=== PATIENT | male | born 1945 | race Caucasian/White ===

== ENCOUNTER 2022-12-18 13:09 | Inpatient (IN) | payer OTHER ==
--- OUTSIDE RECORDS SUMMARY | 2022-12-18 13:13 | XMS REPORT | Continuity of Care Document ---
:1945 Author Organization [facility] t Address [address] [address] Care Team Providers Name Role Phone [phone] Primary Care Physician Unavailable ADRIANA CASTANEDA Attending Clinician Unavailable BERNICE BRODY Attending Clinician Unavailable ASHLI GODINEZ Attending Clinician Unavailable ASHLI GODINEZ Admitting Clinician Unavailable Payers Payer Name Policy Type Policy Number Effective Date Expiration Date S ource MEDICARE PART A [id number] 2010 AND B 00:00:00 [employer] [id number] 2019 00:00:00 Problems Condition Condition Condition Status Onset Resolution Last Treating Co mments Source Name Details Category Date Date Treatment Clinician Date PAD PAD Disease Active [facility] (periphera (periphera 1-14 st l artery l artery 00:00: Hospit a disease) disease) 00 l Bilateral Bilateral Disease Active 2019- Met [facility] carotid carotid 1-14 st artery artery 00:00: Hospita stenosis stenosis 00 l Allergies, Adverse Reactions, Alerts Allergy Allergy Status Severity Reaction(s) Onset Inactive Treating Comm ents Source Name Type Date Date Clinician Sulfa Propensi Active Rash 2018-07 Lower [facility] (Sulfona ty to 0-01 legs , st mide adverse 00:00: blisters Hospita Antibiot reaction 00 , l ics) s to infection drug s Family History Family Member Diagnosis Comments Start Date Stop Date Source Natural father Stroke [facility] Maternal uncle Heart disease [facility] Natural mother [facility] Paternal uncle Heart attack [facility] Social History Social Habit Start Date Stop Date Quantity Comments Source History of tobacco 1961-01-20 Smokes tobacco Me thodist use 00:00:00 daily Hospital [facility] Cigarettes smoked 2021-05-02 2021-05-[address] current (pack per 00:00:00 00:00:00 Hospita l day) - Reported Cigarette 2021-05-02 2021-05-02 [facility] pack-years 00:00:00 00:00:00 Hospital Tobacco use and 2021-05-02 2021-05-02 Smokeless [facility] exposure 00:00:00 00:00:00 tobacco non-user Hospital Alcohol intake 2021-05-02 2021-05-02 Lifetime [facility] 00:00:00 00:00:00 non-drinker Hospital (finding) History of Social 2021-05-02 2021-05-[address] function 00:00:00 00:00:00 Hospital Tobacco Comment 2021-05-02 2021-05-02 enjoy small [facility] t 00:00:00 00:00:00 ciggerlo cigars [facility] Sex Ass[birth year] At [birth year] [facility] 00:00:00 00:00:00 Hospital Smoking Status Start Date Stop Date Source Smokes tobacco daily 2021-05-02 00:00:[address] [facility] Medications Ordered Filled Start Stop Current Ordering Indication Dosage Frequency Signature Comments Components Source Medication Medication Date Date Medication? Clinician (SIG) Name Name pantoprazol 2020-07 Yes 40mg QD Take 40 mg [facility] e 0-[address] (PROTONIX) 11:13: daily. Hospi ta 40 MG EC 37 l tablet ferrous 2020-07 Yes 1{tbl} QD Take 1 [facility] i fumarate 0-[address] (FERROCITE) 11:13: mouth Hospi ta 324 mg (106 37 daily. l mg iron) tablet TURMERIC 2019-0 Yes 2000mg QD Take 2,000 M [facility]i ORAL 4-[address] 13:25: mouth Hospita 26 daily. l gabapentin 2020-0 Yes [id number] 300mg Q.5D Take 1 [facility] (NEURONTIN) 4-[address] 300 mg 00:00: (300 mg Hospita capsule 00 total) by l mouth 2 (two) times a day. atorvastati Yes 20mg QD Take 20 mg [facility] n (LIPITOR) 9-[address] 20 MG 00:00: every Hospita tablet 00 evening. l carvedilol Yes Take by Meth burak (COREG) 9-[address] 12.5 MG 00:00: Taking 1 Hospit a tablet 00 1/2 tablet l twice a day clopidogrel Yes 75mg QD Take 75 mg [facility] (PLAVIX) 75 8-[address] mg tablet 00:00: daily. Hospit a 00 l lisinopril- 0 Yes 1{tbl} Q.5D Take 1 Me thodi hydrochloro 8-[address] thiazide 00:00: mouth 2 Hospit a (PRINZIDE,Z 00 (two) l ESTORETIC) times a 20-12.5 mg day. per tablet hydrALAZINE Yes 20mg Q.5D Take 20 mg [facility] (APRESOLINE 8-[address] ) 10 MG 00:00: (two) Hospita tablet 00 times a l day. Procedures This patient has no known procedures. Plan of Care Planned Activity Planned Date Details Comments Source Future Scheduled 2022-11-02 COVID-19 VACCINE (#1) [facility] Test 15:15:52 [code = COVID-19 VACCINE (#1)] Future Scheduled 2022-11-02 65+ PNEUMOCOCCAL [facility] Test 15:15:52 VACCINE (1 - PCV) [code = 65+ PNEUMOCOCCAL VACCINE (1 - PCV)] Future Scheduled 2022-11-02 Hepatitis C screening [facility] Test 15:15:52 (procedure) [code = 950308809] Future Scheduled 2022-11-02 SHINGLES VACCINES (1 [facility] Test 15:15:52 of 2) [code = SHINGLES VACCINES (1 of 2)] Future Scheduled 2022-11-02 INFLUENZA VACCINE [facility] Test 15:15:52 [code = INFLUENZA VACCINE] Encounters Start End Encounter Admission Attending Care Care Encounter Source Date/Time Date/Time Type Type Clinicians Facility Department ID 2021-05-02 2021-05-02 [facility] [id number] [place] 00:00:00 00:00:00 ADRIANA [address] 2021-05-02 2021-05-02 Outpatient [facility] [id number] [place] 00:00:00 00:00:00 ADRIANA [address] 2020-08-01 2020-08-01 Outpatient ALEJANDRO TROTTER [facility] [id number] 00:00:00 00:00:00 Mariano WITT 2019-08-26 2019-08-26 [facility] [id number] [place] 00:00:00 00:00:00 ASHLI [address] Results This patient has no known results.
[2022-12-18] MEDS ORDERED: NA CHLORIDE 0.9% 1,000 ML ONE ×2 (14:02→18:25)
[2022-12-18] MEDS ORDERED: ONDANSETRON 4 MG/2 ML VIAL ONE (14:02)
[2022-12-18] MEDS ORDERED: NA CHLORIDE 0.9% 500 ML ONE ×2 (14:02→14:55)
[2022-12-18] MEDS ORDERED: FENTANYL CITR 100 MCG/2 ML ONE ×3 (14:02→16:49)
[2022-12-18] MEDS ORDERED: FAMOTIDINE 20 MG/2 ML VIAL IV ONE ×2 (14:02)
[2022-12-18 14:11] LABS: Absolute Lymphocytes (CBC) 0.5 K/uL (0.7-4.9); Hematocrit 40.4 % (39.6-49.0); MCV 95.7 fL (80-100); MPV 8.2 fL (7.6-11.3); RBC Red Blood Cell Count 4.22 M/uL (4.33-5.43)
[2022-12-18 14:12] LABS: Protime INR 1.25
[2022-12-18 14:28] LABS: Bilirubin Direct 0.4 mg/dL (0-0.2); Bilirubin Indirect, Calculated 0.5 mg/dL (0.2-0.8); Bilirubin Total 0.9 mg/dL (0.2-1.0); Troponin High Sensitivity 15.8 pg/mL (<58.9)
--- NOTE | 2022-12-18 14:52 | RAD REPORT ---
EXAM DESCRIPTION: Luis Danielt Single View12/18/2022 2:25 pm CLINICAL HISTORY: ABDOMINAL DISTENTION COMPARISON: CHEST PA AND LAT 2 VIEW dated 10/29/2014; CHEST PA AND LAT 2 VIEW dated 09/23/2007 TECHNIQUE: Portable AP view of the chest. FINDINGS: Decreased inspiratory effort limits evaluation. The lungs are clear. No pneumothorax or ef fusion. The cardiomediastinal contours are unremarkable. IMPRESSION: No acute cardiopulmonary process.
[2022-12-18 14:54] LABS: Specific Gravity 1.015 (1.005-1.030); Urine Bacteria None Seen /HPF (<20); Urine Bilirubin NEGATIVE (Negative); Urine Blood Negative (Negative); Urine Clarity Clear (Clear); Urine Color Light-Yellow (Yellow); Urine Glucose NEGATIVE (Negative); Urine Protein TRACE (Negative); Urine RBC <5 /HPF (None Seen); Urine Urobilinogen Normal (Normal)
[2022-12-18] MEDS ORDERED: NA CHLORIDE 0.9% 100 ML ONE (14:55)
[2022-12-18] MEDS ORDERED: PANTOPRAZOLE 40 MG INJ ONE (14:55)
[2022-12-18] MEDS ORDERED: PIPERACIL/TAZO 3.375 GM VIAL IV ONE (14:56)
--- NOTE | 2022-12-18 15:16 | RAD REPORT ---
EXAM DESCRIPTION: CT - Abdomen Pelvis Wo Contrast - 12/18/2022 2:40 pm CLINICAL HISTORY: ABD PAIN COMPARISON: CT ABD PELVIS W WO CONTRAST dated 01/15/2009 TECHNIQUE: Thin cut axial CT imaging of the abdomen and pelvis was performed without IV contrast. Mu ltiplanar reformats were generated and reviewed. All CT scans are performed using dose optimization technique as appropriate and may include automated exposure control or mA/KV adjustment according to patient size. FINDINGS: No suspicious findings in the lung bases. The liver, spleen, and pancreas show no suspicious findings. Gallbladder and biliary tree are also wi thout suspicious finding. Atrophic changes of the left kidney, without suspicious parenchymal findings within limits of noncont rast technique. No evidence of radiopaque calculi or hydroureteronephrosis. Ill-defined soft tissue thickening in the region of the appendix. Adjacent inflammatory changes with fat stranding extending towards the adventitia of the cecal base and adjacent terminal ileum, likely reactive. No free air, or circumscribed fluid collection within limits of noncontrast evaluation. Tra ce free fluid layering in the pelvis. No suspicious mass or bulky lymphadenopathy. Diastasis recti. T he urinary bladder is without significant finding. No suspicious bony findings. IMPRESSION: Findings suggestive of ruptured appendicitis, with an ill-defined phlegmon in the region of the appendix. Trace layering fluid in the pelvis. No evidence of free air or a well-circumscribed collection within limits of noncontrast evaluation. Other incidental findings as above. The findings were communicated to Gabriele Gay on 12/18/2022 at 15:08 hours.
--- NOTE | 2022-12-18 15:28 | ER ---
Nurse's Notes [facility] Name: Alxe Bhatia Age: 77 yrs Sex: Male : 1945 Arrival Date: 12/18/2022 Time: 13:09 Bed 5 Private MD: Diagnosis: Abdominal pain, Generalized;Acute appendicitis with generalized peritonitis;Acute kidney failure, unspecified;Nausea Presentation: 12/18 13:24 Chief complaint: Patient states: lower abd pain, nausea, started last night , sever iw this morning , pain goes into scrotum. 13:24 Method Of Arrival: Wheelchair iw 13:26 Ebola Screen: Patient negative for fever greater than or equal to 101.5 degrees iw Fahrenheit, and additional compatible Ebola Virus Disease symptoms Patient denies exposure to infectious person. Patient denies travel to an Ebola-affected area in the 21 days before illness onset. No symptoms or risks identified at this time. Initial Sepsis Screen: Does the patient meet any 2 criteria? No. Patient's initial sepsis screen is negative. Does the patient have a suspected source of infection? No. Patient's initial sepsis screen is negative. Risk Assessment: Do you want to hurt yourself or someone else? Patient reports no desire to harm self or others. 13:26 Acuity: LATANYA 2 iw Triage Assessment: 13:30 General: Appears uncomfortable, Behavior is calm, cooperative, appropriate for age. bp Pain: Complains of pain in right lower quadrant and left lower quadrant. EENT: No deficits noted. Neuro: No deficits noted. Cardiovascular: No deficits noted. Respiratory: No deficits noted. GI: Reports lower abdominal pain. : Reports pain scrotum. Derm: No deficits noted. Musculoskeletal: No deficits noted. Historical: - Allergies: 13:24 Sulfa (Sulfonamide Antibiotics); iw - PMHx: 13:24 prostate cancer; Hypertensive disorder; COPD; stomach ulcers; iw - PSHx: 13:24 None; iw - Immunization history:: Client reports receiving the 2nd dose of the Covid vaccine. - Social history:: Smoking status: Patient reports the use of cigarette tobacco products. - Family history:: not pertinent. Screenin:30 [facility] ED Fall Risk Assessment (Adult) History of falling in the last 3 months, bp including since admission No falls in past 3 months (0 pts). Abuse screen: Denies threats or abuse. Denies injuries from another. Nutritional screening: No deficits noted. Tuberculosis screening: No symptoms or risk factors identified. Assessment: 13:30 General: SEE TRIAGE NOTE. bp 14:32 Reassessment: No changes from previously documented assessment. to CT via stretcher. ll1 15:42 Reassessment: SURGEON AT B/S. PT FOR STAT OR 2/2 RUPTURED APPY. bp 15:55 Reassessment: Gave report to scouring pads supervisor PEGGY Can. mb9 Vital Signs: 13:25 Pulse 63; Resp 18; Temp 97.3; Pulse Ox 96% ; Weight 115.67 kg; Height 6 ft. 0 in. ; iw 14:32 BP 160 / 67; Pulse 83; Pulse Ox 98% ; ll1 15:42 BP 115 / 46; Pulse 77; Resp 17; Pulse Ox 97% ; bp 13:25 Body Mass Index 34.58 (115.67 kg, 182.88 cm) iw ED Course: 13:15 Patient arrived in ED. kj1 13:26 Triage completed. iw 13:26 Arm band placed on. iw 13:29 Gabriele Gay MD is Attending Physician. ian 13:30 Patient has correct armband on for positive identification. Bed in low position. Call bp light in reach. Side rails up X2. Adult w/ patient. 13:45 Inserted saline lock: 20 gauge in right antecubital area, using aseptic technique. mb9 13:58 Ryan Miles, RN is Primary Nurse. bp 14:22 Basic Metabolic Panel Sent. mb9 14:22 LFT's Sent. mb9 14:22 Magnesium Sent. mb9 14:22 NT PRO-BNP Sent. mb9 14:22 Troponin HS Sent. mb9 14:27 XRAY Chest (1 view) In Process Unspecified. EDMS 14:40 Abdomen In Process Unspecified. EDMS 15:21 Kirill Lopez MD is Hospitalizing Provider. ian 15:22 EKG done, by ED staff, reviewed by Ryan Miles RN. mb9 15:56 No provider procedures requiring assistance completed. Patient admitted, IV remains in mb9 place. Administered Medications: 13:45 Drug: NS 0.9% IV 500 ml Route: IV; Rate: bolus; Site: right antecubital; mb9 15:21 Follow up: Response: No adverse reaction; IV Status: Completed infusion mb9 13:45 Drug: NS 0.9% IV 1000 ml Route: IV; Rate: 125 ml/hr; Site: right antecubital; mb9 13:45 Drug: Ondansetron IVP 4 mg Route: IVP; Site: right antecubital; mb9 14:37 Follow up: Response: No adverse reaction mb9 13:48 Drug: Famotidine IVP 20 mg Route: IVP; Site: right antecubital; mb9 14:38 Follow up: Response: No adverse reaction mb9 13:55 Drug: fentaNYL (PF) IVP 50 mcg Route: IVP; Site: right antecubital; mb9 14:37 Follow up: Response: No adverse reaction mb9 15:05 Drug: NS 0.9% IV 500 ml Route: IV; Rate: bolus; Site: right antecubital; mb9 15:56 Follow up: Response: No adverse reaction; IV Status: Completed infusion mb9 15:08 Drug: Pantoprazole IVP 40 mg Route: IVP; Site: right antecubital; mb9 15:22 Follow up: Response: No adverse reaction mb9 15:15 Drug: fentaNYL (PF) IVP 25 mcg Route: IVP; Site: right antecubital; mb9 15:21 Follow up: Response: No adverse reaction mb9 15:20 Drug: Piperacillin-Tazobactam IVPB 3.375 grams Route: IVPB; Infused Over: 60 mins; mb9 Site: right antecubital; Outcome: 15:28 Decision to Hospitalize by Provider. ian 15:56 Admitted to OR accompanied by nurse, with chart. mb9 15:56 Condition: stable 15:56 Instructed on the need for admit. 16:03 Patient left the ED. mb9 Signatures: Dispatcher [employer] EDGabriele Jauregui MD MD cha Williams, Irene, RN RN iw Peltier, Brian, RN RN bp Jackson, Kandis kj1 Lizzie Webster RN RN ll1 Negar Hernandez RN RN mb9
--- NOTE | 2022-12-18 15:28 | EDPHYS ---
Physician Documentation [facility] Name: Alex Bhatia Age: 77 yrs Sex: Male : 1945 Arrival Date: 12/18/2022 Time: 13:09 Bed 5 Private MD: ED Physician Gabriele Gay HPI: 12/18 14:01 This 77 yrs old Male presents to ER via Wheelchair with complaints of ian Abdominal Pain. 14:01 The patient presents with abdominal pain in the upper abdomen, in the lower abdomen, ian abdominal distention in the upper abdomen, in the lower abdomen. Onset: The symptoms/episode began/occurred 14 day(s) ago. The symptoms do not radiate. Associated signs and symptoms: Pertinent positives: nausea, vomiting. The symptoms are described as constant, crampy, sharp. Modifying factors: The symptoms are alleviated by nothing, remaining still, the symptoms are aggravated by breathing deeply, movement, pressure, work stress. Severity of pain: At its worst the pain was severe in the emergency department the pain is unchanged. The patient has not experienced similar symptoms in the past. Historical: - Allergies: 13:24 Sulfa (Sulfonamide Antibiotics); iw - PMHx: 13:24 prostate cancer; Hypertensive disorder; COPD; stomach ulcers; iw - PSHx: 13:24 None; iw - Immunization history:: Client reports receiving the 2nd dose of the Covid vaccine. - Social history:: Smoking status: Patient reports the use of cigarette tobacco products. - Family history:: not pertinent. ROS: 14:01 Constitutional: Negative for fever, chills, and weight loss, Eyes: Negative for injury, ian pain, redness, and discharge, ENT: Negative for injury, pain, and discharge, Neck: Negative for injury, pain, and swelling, Cardiovascular: Negative for chest pain, palpitations, and edema, Respiratory: Negative for shortness of breath, cough, wheezing, and pleuritic chest pain, Back: Negative for injury and pain, : Negative for injury, bleeding, discharge, and swelling, MS/Extremity: Negative for injury and deformity, Skin: Negative for injury, rash, and discoloration, Neuro: Negative for headache, weakness, numbness, tingling, and seizure, Psych: Negative for depression, anxiety, suicide ideation, homicidal ideation, and hallucinations, Allergy/Immunology: Negative for hives, rash, and allergies, Endocrine: Negative for neck swelling, polydipsia, polyuria, polyphagia, and marked weight changes. 14:01 Abdomen/GI: Positive for abdominal pain, nausea, of the right upper quadrant, left upper quadrant, right lower quadrant and left lower quadrant. Exam: 14:06 Constitutional: This is a well developed, well nourished patient who is awake, alert, ian and in no acute distress. Head/Face: Normocephalic, atraumatic. Eyes: Pupils equal round and reactive to light, extra-ocular motions intact. Lids and lashes normal. Conjunctiva and sclera are non-icteric and not injected. Cornea within normal limits. Periorbital areas with no swelling, redness, or edema. ENT: Nares patent. No nasal discharge, no septal abnormalities noted. Tympanic membranes are normal and external auditory canals are clear. Oropharynx with no redness, swelling, or masses, exudates, or evidence of obstruction, uvula midline. Mucous membranes moist. Neck: Trachea midline, no thyromegaly or masses palpated, and no cervical lymphadenopathy. Supple, full range of motion without nuchal rigidity, or vertebral point tenderness. No Meningismus. Chest/axilla: Normal chest wall appearance and motion. Nontender with no deformity. No lesions are appreciated. Cardiovascular: Regular rate and rhythm with a normal S1 and S2. No gallops, murmurs, or rubs. Normal PMI, no JVD. No pulse deficits. Respiratory: Lungs have equal breath sounds bilaterally, clear to auscultation and percussion. No rales, rhonchi or wheezes noted. No increased work of breathing, no retractions or nasal flaring. Back: No spinal tenderness. No costovertebral tenderness. Full range of motion. Male : Normal genitalia with no discharge or lesions. Skin: Warm, dry with normal turgor. Normal color with no rashes, no lesions, and no evidence of cellulitis. MS/ Extremity: Pulses equal, no cyanosis. Neurovascular intact. Full, normal range of motion. Neuro: Awake and alert, GCS 15, oriented to person, place, time, and situation. Cranial nerves II-XII grossly intact. Motor strength 5/5 in all extremities. Sensory grossly intact. Cerebellar exam normal. Normal gait. Psych: Awake, alert, with orientation to person, place and time. Behavior, mood, and affect are within normal limits. 14:06 ECG was reviewed by the Attending Physician. 15:38 ECG was reviewed by the Attending Physician. [facility] Vital Signs: 13:25 Pulse 63; Resp 18; Temp 97.3; Pulse Ox 96% ; Weight 115.67 kg; Height 6 ft. 0 in. ; iw 14:32 BP 160 / 67; Pulse 83; Pulse Ox 98% ; ll1 15:42 BP 115 / 46; Pulse 77; Resp 17; Pulse Ox 97% ; bp 13:25 Body Mass Index 34.58 (115.67 kg, 182.88 cm) iw MDM: 13:29 Patient medically screened. ian 14:08 Differential diagnosis: bowel obstruction, diverticulitis, gastritis, gastroesophageal ian reflux disease, Mesenteric ischemia or infarction, non-specific abd pain, pancreatitis, Peptic Ulcer Disease, Perf. Duodenal Ulcer, Peritonitis, Ureterolithiasis, urinary tract infection. Data reviewed: vital signs, nurses notes, lab test result(s), EKG, radiologic studies, CT scan, plain films. Consideration of Admission/Observation Patient was admitted/placed on observation. Escalation of care including admission/observation considered. I considered the following discharge prescriptions or medication management in the emergency department Medications were administered in the Emergency Department. See MAR. Test considered but Not performed: Ultrasound NO GB USG. Historians other than the Patient: Spouse/Significant Other: AND SON, BOTH INFORMED. Care significantly affected by the following chronic conditions: Hypertension, Chronic Obstructive Pulmonary Disease, Obesity. 12/18 13:33 Order name: Basic Metabolic Panel; Complete Time: 15:15 [facility] 12/18 13:33 Order name: CBC with Diff [facility] 12/18 13:33 Order name: LFT's; Complete Time: 15:15 [facility] 12/18 13:33 Order name: Magnesium; Complete Time: 15:15 [facility] 12/18 13:33 Order name: NT PRO-BNP; Complete Time: 15:15 [facility] 12/18 13:33 Order name: PT-INR; Complete Time: 14:19 [facility] 12/18 13:33 Order name: Troponin HS; Complete Time: 15:15 [facility] 12/18 13:33 Order name: Lipase; Complete Time: 15:15 [facility] 12/18 13:33 Order name: Urinalysis w/ reflexes; Complete Time: 15:15 [facility] 12/18 14:07 Order name: Lactate w/ 2H reflex if indic.; Complete Time: 15:15 [facility] 12/18 15:56 Order name: Basic Metabolic Panel [facility] 12/18 15:56 Order name: Basic Metabolic Panel [facility] 12/18 15:56 Order name: CBC with Automated Diff [facility] 12/18 15:56 Order name: CBC with Automated Diff [facility] 12/18 15:56 Order name: Lipase [facility] 12/18 15:56 Order name: Lipase [facility] 12/18 15:56 Order name: Liver (Hepatic) Function [facility] 12/18 15:56 Order name: Liver (Hepatic) Function [facility] 12/18 13:33 Order name: XRAY Chest (1 view); Complete Time: 15:15 [facility] 12/18 14:40 Order name: Abdomen [facility] 12/18 13:33 Order name: EKG; Complete Time: 13:34 [facility] 12/18 15:36 Order name: CONS Physician Consult [facility] 12/18 15:56 Order name: NPO [facility] 12/18 13:33 Order name: Cardiac monitoring; Complete Time: 14:12 [facility] 12/18 13:33 Order name: EKG - Nurse/Tech; Complete Time: 15:22 [facility] 12/18 13:33 Order name: IV Saline Lock; Complete Time: 14:12 [facility] 12/18 13:33 Order name: Labs collected and sent; Complete Time: 14:11 [facility] 12/18 13:33 Order name: O2 Per Protocol; Complete Time: 14:11 [facility] 12/18 13:33 Order name: O2 Sat Monitoring; Complete Time: 14:11 [facility] 12/18 13:59 Order name: IV Saline Lock - Large Bore; Complete Time: 14:21 [facility] EC:38 Rate is 77 beats/min. QRS [place] is Normal. [place] interval is normal. QRS interval is ian normal. QT interval is normal. No Q waves. T waves are Normal. No ST changes noted. Clinical impression: NSR w/ Non-specific ST/T Changes and No evidence of ischemia. Interpreted by me. Reviewed by me. Administered Medications: 13:45 Drug: NS 0.9% IV 500 ml Route: IV; Rate: bolus; Site: right antecubital; mb9 15:21 Follow up: Response: No adverse reaction; IV Status: Completed infusion mb9 13:45 Drug: NS 0.9% IV 1000 ml Route: IV; Rate: 125 ml/hr; Site: right antecubital; mb9 13:45 Drug: Ondansetron IVP 4 mg Route: IVP; Site: right antecubital; mb9 14:37 Follow up: Response: No adverse reaction mb9 13:48 Drug: Famotidine IVP 20 mg Route: IVP; Site: right antecubital; mb9 14:38 Follow up: Response: No adverse reaction mb9 13:55 Drug: fentaNYL (PF) IVP 50 mcg Route: IVP; Site: right antecubital; mb9 14:37 Follow up: Response: No adverse reaction mb9 15:05 Drug: NS 0.9% IV 500 ml Route: IV; Rate: bolus; Site: right antecubital; mb9 15:56 Follow up: Response: No adverse reaction; IV Status: Completed infusion mb9 15:08 Drug: Pantoprazole IVP 40 mg Route: IVP; Site: right antecubital; mb9 15:22 Follow up: Response: No adverse reaction mb9 15:15 Drug: fentaNYL (PF) IVP 25 mcg Route: IVP; Site: right antecubital; mb9 15:21 Follow up: Response: No adverse reaction mb9 15:20 Drug: Piperacillin-Tazobactam IVPB 3.375 grams Route: IVPB; Infused Over: 60 mins; mb9 Site: right antecubital; Disposition Summary: 12/18/22 15:28 Hospitalization Ordered Hospitalization Status: Inpatient Admission ian Provider: Kirill Lopez cha Location: Telemetry[facility] (Inpatient) ian Condition: Fair ian Problem: new ian Symptoms: have improved ian Bed/Room Type: Standard ian Room Assignment: 430(12/18/22 15:52) bd Diagnosis - Abdominal pain, Generalized ian - Acute appendicitis with generalized peritonitis ian - Acute kidney failure, unspecified ian - Nausea ian Forms: - Medication Reconciliation Form ian - SBAR form ian Signatures: Dispatcher [employer] EDMS Blanca Reddy Corey, MD MD cha Williams, Irene RN Negar Snyder RN RN mb9 Corrections: (The following items were deleted from the chart) 14:40 13:34 Abdomen Pelvis W Con+CT.RAD.BRZ ordered. EDMS EDMS 15:52 15:28 ian bd
[2022-12-18] MEDS ORDERED: ONDANSETRON 4 MG/2 ML VIAL IV PRN (15:53)
[2022-12-18] MEDS: NA CHLORIDE 0.9% 1,000 ML IV SCH (16:00)
[2022-12-18] MEDS: PIPER TAZO 3.375 GM in NA CHLORIDE 0.9% 100 ML IV SCH (16:20)
[2022-12-18] MEDS ORDERED: BUPIVACAINE 0.25% PF 30 ML VIAL ONE (16:28)
[2022-12-18] MEDS ORDERED: ALBUTEROL 2.5 MG/3 ML NEB SOL ONE (16:35)
[2022-12-18] MEDS ORDERED: SUCCINYLCHOLINE 20 MG/ML (10 ML) IV ONE (16:46)
[2022-12-18] MEDS ORDERED: propofoL 200 MG/20 ML VIAL IV ONE (16:49)
[2022-12-18] MEDS ORDERED: ROCURONIUM 50 MG/5 ML VIAL IV ONE (16:49)
[2022-12-18 18:04] LABS: Blood Morphology Comment NOT SEEN (NOT SEEN); Platelet Estimate ADEQ; White Blood Cell Scan OK (OK)
[2022-12-18] MEDS ORDERED: Ringers Lactate 1,000 ML IV ONE (18:25)
--- NOTE | 2022-12-18 18:29 | P.OP ---
Preoperative diagnosis: Acute Perforated Appendicitis Postoperative diagnosis: Acute Perforated Appendicitis Primary procedure: Laparoscopic Appendectomy Anesthesia: GETA + Local Estimated blood loss: <20cc Specimen: Appendix and Mesoappendix Findings: Acute Perforated Appedicitis, abscess, peritonitis, appendix transected Complications: None Drain(s): ERMELINDA drain Transferred to: Recovery Room Condition: Good
[2022-12-18] MEDS ORDERED: NEOSTIGMINE 1 MG/ML -10 ML VIAL ONE (18:30)
[2022-12-18] MEDS ORDERED: GLYCOPYRROLATE 0.2 MG/ML SYR ONE (18:30)
[2022-12-18] MEDS ORDERED: HYDROCODONE/APAP 5/325 MG TAB PO PRN (18:45)
[2022-12-18] MEDS ORDERED: HYDROMORPHONE HCL 1 MG/ML INJ ONE (19:09)
--- NOTE | 2022-12-18 19:14 | OP ---
Date of Procedure: 12/18/2022 Surgeon: Cassius Valencia MD, Preoperative Diagnosis: Acute perforated appendicitis. Postoperative Diagnosis: Acute perforated appendicitis. Procedures Performed: 1.Laparoscopic appendectomy. 2.Laparoscopic adhesiolysis greater than 1 hour. Anesthesia: General endotracheal plus local with 0.25% Marcaine. Estimated Blood Loss: Less than 1 cc. Specimen: Appendix, mesoappendix and friable tissue in the periappendiceal region. Findings: Acute perforated appendicitis, intra-abdominal abscesses with gross peritonitis. Abscesse s were noted throughout the abdomen with fluid in the perihepatic space as well, as well as in the pe lvis. Dark murky fluid noted. The appendix appeared to be completely transected with a very short r esidual stump at the confluence of the cecum. The distal aspect of the appendix appeared to be ruptu red grossly with significant inflammatory changes with small bowel adhered to this region, particular ly the distal small bowel near the terminal ileum with adhesions to the mesentery of the small bowel and there was gross peritonitis appreciated with this significant inflammatory appearance of the enti re intraperitoneal compartment. Complications: None immediate. Drains: A 10 mm ERMELINDA flat drain placed in the right colic gutter and extended down into the pelvis. Disposition: The patient was transferred to the recovery room in good condition. Procedure In Detail: After informed consent was obtained, the patient was brought to the operating r oom, prepped and draped in the usual sterile fashion after adequate anesthesia achieved. An infraumb ilical area was anesthetized with 0.25% Marcaine, sharply incised. A 5 mm trocar was placed under di rect visualization without evidence of complication. Insufflation was obtained to 15 mmHg at this ti me. There was no injury to vital structures upon entry into the abdomen. At this point, I placed an additional trocar in the supraumbilical position to the right of midline. A 5 mm trocar was placed under direct visualization without evidence of complication. Additional trocar was placed in the rig ht lower quadrant, similarly anesthetized, sharply incised, and a 5 mm trocar was placed under direct visualization without evidence of complication. The umbilical trocar was then upsized to a 12 mm un patrick direct visualization without evidence of complication. The patient was positioned head down righ t side up position. Ratcheted grasper was used to grasp the patient's cecum and trace it down to the confluence of the cecum where a small residual appendiceal stump was appreciated. There was signifi cant inflammatory change with small bowel near the terminal ileum completely adhered to this area. B fernando dissection was used to dissect free this area and to allow for mobilization of this area. A sig nificant scar tissue was taken down using combination of predominantly blunt dissection as well as th e LigaSure device. After this was completed, I grasped the appendix and created a mesenteric window and fired the LAINE 45 purple load across the base of the appendix at the confluence of the cecum with good approximation of tissues. This appeared to closed the residual appendix quite well. There was significant inflammatory rind to the entire right lower quadrant including the colon at this point. I then dissected circumferentially around and removed significant scar tissue and what appeared to be portions of the distal ruptured appendix in a piecemeal fashion, placed in EndoCatch bag, and remove d through the umbilical trocar and sent off for pathologic examination. I then removed additional ti ssue on the medial aspect, which was firm and fixed to the same residual area consistent with appendi ceal tissue. I created a window at this point and fired the stapler across this area too, across thi s firm adipose tissue, which ran medial to the small bowel, but was not the mesentery of the small jasson wel. It was inflamed tissue, which appeared to be grossly infected by the close apposition to the ab scesses and infected appendix and as such I removed it as it appeared to be nonviable tissue at this point. It was removed after firing the LAINE 60 purple load with a single fire. This was then placed in EndoCatch bag, removed through the umbilical trocar, and sent off for pathologic examination. The right lower quadrant was then copiously irrigated and inspected at this point. There was no residua l appendiceal material identified; however, visualization was quite difficult due to the significant inflammation as the patient had a 2-week course of abdominal pain and likely had a perforation for so me period of time prior to his presentation. The entire abdominal part was contaminated with abscess like fluid, particularly in the jose-hepatic and pelvic regions in the right lower quadrant. The ar ea was copiously irrigated with approximately 3 L of sterile saline and suctioned out until completel y dry after maneuvering the patient multiple different positions to allow for all fluid to be suction ed out. I then inspected the area. No additional hemostatic maneuvers were required at this point. I placed a 10 mm flat ERMELINDA drain into the right colic gutter and extended the distal aspect into the p azam. The patient was positioned back in neutral position with slight head up tilt. I was suctione d out the remaining the residual fluid at this point. No additional maneuvers were required. I insp ected the area. There was no additional stapling required and the ashley appeared to be in good frank tomic position at this point. I then closed the umbilical trocar site using a Jacob-Matt suture passer with 0 Vicryl in an interrupted fashion with good approximation of tissues. The abdomen was completely desufflated under direct visualization without evidence of complication. The drain was se cured to the skin using a 3-0 nylon suture and a sterile dressing was placed on this area. The abdom en was completely desufflated under direct vision without evidence of complication. All remaining tr ocars were removed. All skin incisions were then copiously irrigated and closed with interrupted sta ples. A sterile dressing placed over top. The patient tolerated the procedure well without evidence of complication and transferred to PACU in good condition. All counts were correct at the end of e case. TK/MODL Voice ID: [id number] Report ID: [id number]
--- NOTE | 2022-12-18 19:26 | CON ---
Date of Consultation: 12/18/2022 Brief History Of Present Illness: The patient is a 77-year-old male with a past medical hi story of hypertension, COPD, ulcers, prostate cancer status post treatment, who presents with a 2-wee k history of periumbilical, now right lower quadrant abdominal pain beginning to get severe over the past 2-3 days. When he noticed it got significantly worse, he came to the hospital with the above-st ated complaints. He admits to nausea, vomiting, severe, sharp, crampy right lower quadrant abdominal pain, alleviated by nothing, remaining still does improve somewhat, but does not alleviated. It is made worse by movement, pressure, breathing deeply, any movement. He denies sick contacts, recent tr homero, any food exposures. Past Medical History: Prostate cancer, hypertension, COPD, stomach ulcers. Past Surgical History: Prostate treatment. Allergies: TO SULFA. Physical Examination: Vital Signs: At the time of my examination were a blood pressure of 160/67, pulse 83, respiratory ra te was 18, temperature 97.3, pulse ox 98% on room air. General: He is awake, alert, oriented. Psychiatric: Appropriate, conversive. He appears in moderate distress. HEENT: Normocephalic. Sclerae anicteric. Mucous membranes are moist. Oropharynx is clear. Neck: Supple without JVD. Chest: Expansion and excursion. Cardiovascular: Regular rate and rhythm. Pulmonary: Clear to auscultation bilaterally. Abdomen: Soft with positive right lower quadrant tenderness to palpation, positive focal peritonitis , positive rebound and guarding at McBurney point. There is both voluntary and involuntary guarding at this point. Extremities: No clubbing, cyanosis, edema. Skin: Warm and dry. Laboratory Data: Reveals white blood cell count of 11.3, hemoglobin is 13.3, hematocrit of 40.4, bharat telet count is 258, neutrophils 90%. His PT 13.9, INR 1.25. Sodium 136, potassium 5.0, chloride 106 , carbon dioxide 22, BUN 42, creatinine 1.8, glucose is 191, lactic acid 3.1, calcium 9.3, magnesium 2.0, total bilirubin 0.9, direct component 0.4, AST 11, ALT 16, alkaline phosphatase 109. His lipase is 19. UA was essentially negative, trace protein was noted, otherwise essentially negative. He hicks d a CT scan of the abdomen and pelvis, officially read as findings suggestive of ruptured appendiciti s with an ill-defined phlegmon in the region of the appendix, trace layering of fluid in the pelvis. No evidence of free air, well-circumscribed collections within limits for noncontrast evaluation. Joselin alvarenga has diastasis recti as well. Assessment And Plan: This is a 77-year-old male, who comes in with signs and symptoms of possible ea rly acute perforated appendicitis. 1.IV fluid hydration. 2.Antibiotic coverage with Zosyn 3.375 IV q.6. 3.I have explained risks, benefits, and alternatives of laparoscopic possible open appendectomy incl uding, but not limited to bleeding, infection, damage to surrounding tissues, need for further operat ion and procedures, trouble with anesthesia, blood clots, strokes, other procedure related complicati ons related to anesthesia. The patient and his family are at the bedside and all agreed to proceed a s indicated. Thank for this interesting consult. ALEXANDER/HOLLY Voice ID: [id number] Report ID: [id number]
[2022-12-18] MEDS: FAMOTIDINE 20 MG/2 ML VIAL IV SCH (20:07)
[2022-12-18] MEDS: INSULIN -REGULAR HUMAN 50 UNIT/0.5 ML ML SQ SCH (21:00)
[2022-12-19] MEDS: PIPER TAZO 3.375 GM in NA CHLORIDE 0.9% 100 ML IV SCH ×3 (00:50→16:51)
[2022-12-19] MEDS: MORPHINE 4 MG/ML SYR IV PRN ×2 (03:15→07:35)
[2022-12-19] MEDS: NA CHLORIDE 0.9% 1,000 ML IV SCH ×4 (03:18→21:44)
--- NOTE | 2022-12-19 04:55 | EKG ---
Test Date: 2022-12-18 Test Time: 15:11:32 Senior [employer] Applications Developer: MB MEASUREMENT RESULTS: Intervals: Rate: 77 IN: 154 QRSD: 80 QT: 380 QTc: 430 Preston: P: 64 IN: 154 QRS: 81 T: 60 INTERPRETIVE STATEMENTS: Sinus rhythm with occasional premature ventricular complexes Otherwise normal ECG Compared to ECG 10/02/2016 16:35:10 Ventricular premature complex(es) now present Incomplete right bundle-branch block no longer present Electronically Signed On 12-19-22 04:53:44 CDT by Torres Benton
[2022-12-19 06:32] LABS: Absolute Lymphocytes (CBC) 0.4 K/uL (0.7-4.9); Hematocrit 30.5 % (39.6-49.0); Lymphocytes % 3.9 % (15.3-44.8); MCV 96.9 fL (80-100); MPV 8.6 fL (7.6-11.3); RBC Red Blood Cell Count 3.15 M/uL (4.33-5.43)
[2022-12-19 06:53] LABS: Albumin 2.1 g/dL (3.4-5.0); Bilirubin Direct 0.6 mg/dL (0-0.2); Bilirubin Indirect, Calculated 0.2 mg/dL (0.2-0.8); Bilirubin Total 0.8 mg/dL (0.2-1.0); Magnesium 1.8 mg/dL (1.6-2.4); Potassium 4.4 mEq/L (3.5-5.1); Protein, Total 5.7 g/dL (6.4-8.2)
[2022-12-19] MEDS: INSULIN -REGULAR HUMAN 50 UNIT/0.5 ML ML SQ SCH ×4 (07:30→21:00)
[2022-12-19] MEDS ORDERED: ONDANSETRON 4 MG/2 ML VIAL IV PRN (07:57)
--- NOTE | 2022-12-19 08:10 | HP ---
Date of Admission: 12/18/2022 Chief Complaint: Abdominal pain. History Of Present Illness: This is a 77-year-old male patient, came into emergency room with abdomi nal pain. After he was evaluated in the emergency room, he was found to have acute appendicitis and the patient was requested to be seen by Dr. Valencia, general surgeon telephone answerer and he took the patient to surgery immediately for perforated acute appendicitis problem. I saw patient after the surgery. He was in recovery room on nasal cannula oxygen 2 L/minute, maintaining oxygen saturation around 96% to 98%, not in any respiratory distress. There were no family members at bedside. Allergies: TO SULFA CAUSING RASH. Medications: Current medication list reviewed. Outpatient medication list according to office recor ds; Tylenol 500 mg 4 times a day as needed for pain, amlodipine 5 mg daily, atorvastatin 20 mg daily at bedtime, carvedilol 25 mg 2 times a day, clopidogrel 75 mg daily, famotidine 40 mg daily at bedtim e, ferrous gluconate 240 mg every other day, gabapentin 300 mg 2 times a day, hydralazine 10 mg the p atient takes 3 tablets 2 times a day, lisinopril/HCTZ 20/12.5 one tablet 2 times a day. Review of Systems: GI: As mentioned above. Musculoskeletal: Chronic arthritis complaints, especially back pain. All other systems reviewed and negative. Past Medical History: Significant for type 2 diabetes mellitus, hypertension, hyperlipidemia, aortic atherosclerosis, prostate cancer status post radiation therapy in 2009, osteoarthritis at multiple s [facility], MGUS (monoclonal gammopathy of unknown significance), chronic kidney disease, stage 3A, iron de ficiency anemia, and COPD. Past Surgical History: Significant for carotid artery stent placement on both sides, back surgery, a nd knee surgery. Family History: Father with stroke. Mother , details unknown. Sister had dementia. Social History: Positive for smoking on a daily basis. Use of alcohol negative. Physical Examination: Initial Vital Signs: Temperature 97.3, pulse 63, respiratory rate 18, oxygen saturation 96%, blood p ressure 160/67. General: The patient is sleeping, wakes up from time to time, not in any distress. HEENT: Head atraumatic, normocephalic. Conjunctivae nonerythematous. Sclerae white. Mouth, no thr ush or edema noted. Ears/Nose, no mass, lesion, discharge noted. Neck: Supple. No JVD, lymph nodes, bruit, thyromegaly noted. Lungs: Bilateral good equal air entry. Clear to auscultation. No rhonchi. No rales. Heart: Normal heart sounds, no murmur or gallop. Abdomen: The patient has surgical dressing present with recent surgery with presence of drain tube f rom right lower quadrant draining clear hemorrhagic looking fluid. Bowel sounds absent. Extremities: No leg edema. No calf tenderness. Skin: No rash, ulcer, cellulitis. Lymphatics: No lymph node enlargement in neck, supraclavicular, infraclavicular region. Neuro: No focal neurological deficit. Chest: Unremarkable. External Genitalia: Deferred. Rectal: Deferred. Laboratory Data: White count 11.3, hemoglobin 13.3, platelets 258. Sodium 136, potassium 5, chlorid e 106, bicarb 22, BUN 42, creatinine 1.81, glucose 191, lactic acid 3.1, lipase 19. Liver function t ests unremarkable. Urinalysis unremarkable. Chest x-ray, no acute cardiopulmonary changes. CAT sca n of abdomen and pelvis shows changes of acute appendicitis. Impression: 1.Acute appendicitis. 2.Acute peritonitis secondary to above. 3.Sepsis secondary to above. 4.Chronic obstructive pulmonary disease. 5.Hypertension. 6.Hyperlipidemia. 7.Type 2 diabetes mellitus. 8.Osteoarthritis, multiple sites. 9.Chronic kidney disease, stage 3A. Plan: We will go ahead and admit the patient to hospital for further evaluation and management of th is problem. The patient is appropriate for inpatient and [facility] SCDs will be ordered for DVT prophylaxis and the patient will be getting Lovenox also for DVT pro phylaxis per order. Continue antibiotics Zosyn, which was ordered and continue IV fluid, pain medica tion, nausea medication per order. For his gastroesophageal reflux disease, we will go ahead and giv e IV Pepcid. For hypertension, we will not give any antihypertensive medication, monitor blood press ure and at appropriate time we will restart antihypertensive medication. For hyperlipidemia, we will restart statin therapy at appropriate time. Diabetes will be managed with sliding scale insulin at this point. I will see him tomorrow morning for followup. YESSY/MODL Voice ID: [id number]
[2022-12-19] MEDS: ENOXAPARIN 40 MG/0.4 ML SQ SCH (08:32)
[2022-12-19] MEDS: FAMOTIDINE 20 MG/2 ML VIAL IV SCH ×2 (08:32→20:03)
[2022-12-19] MEDS: ENSURE HIGH PROTEIN 237 ML CAN PO SCH ×3 (08:33→21:00)
[2022-12-19] MEDS: HYDROCODONE/APAP 5/325 MG TAB PO SCH ×3 (10:30→19:56)
--- NOTE | 2022-12-19 21:02 | PN ---
Date of Progress Note: 12/19/2022 Subjective: The patient was seen this morning for followup. His and daughter were present in r oom with him. Overall, he feels better. Overnight vital signs reviewed. Blood pressure has remaine d stable. The patient is having abdominal pain, which is controlled with pain medications. Denies a ny nausea or vomiting. No chest pain. No shortness of breath. He is awake, alert, answering questi ons appropriately and joking and smiling. Objective: Vital Signs: Reviewed. HEENT: Unremarkable. Lungs: Clear to auscultation. Heart: Sounds normal. Abdomen: Soft. Bowel sounds present with surgical dressing present, clean. No evidence of any disc harge, bleeding and presence of drainage tube in the right lower quadrant. Extremities: No leg edema. Laboratory Data: White count 10.7, hemoglobin 10, and platelets 180. Sodium 139, potassium 4.4, chl oride 112, bicarb 22, BUN 41, creatinine 1.67, and glucose 101. Liver function tests unremarkable. Serum albumin 2.1. Impression: 1.Acute appendicitis. 2.Peritonitis. 3.Sepsis. 4.Acute kidney injury. 5.Volume depletion. 6.Malnutrition. 7.Chronic obstructive pulmonary disease. 8.Hypertension. 9.Hyperlipidemia. Plan: We will go ahead and continue IV Pepcid. Continue current antibiotics, Zosyn. Physical Thera py was consulted to help ambulate the patient. We will go ahead and order hydrocodone on a scheduled basis and use morphine as needed. Continue Zofran as needed. The patient is on clear liquid diet. We will continue that and start him on Ensure as a nutritional supplement. Details and plan of kenji ramirez were discussed with the patient and the patient's family members. YESSY/MODL Voice ID: [id number] Report ID: [id number]
[2022-12-19] MEDS ORDERED: FUROSEMIDE 40 MG/4 ML VIAL IV ONE (21:57)
[2022-12-19] MEDS: ALBUTEROL 2.5 MG/3 ML NEB SOL NEB SCH (22:20)
[2022-12-19] MEDS: IPRATROPIUM BROM 0.5MG/2.5ML NEB SCH (22:20)
[2022-12-20] MEDS: PIPER TAZO 3.375 GM in NA CHLORIDE 0.9% 100 ML IV SCH ×3 (01:31→17:01)
[2022-12-20] MEDS: HYDROCODONE/APAP 5/325 MG TAB PO SCH ×4 (01:34→21:01)
[2022-12-20] MEDS: IPRATROPIUM BROM 0.5MG/2.5ML NEB SCH ×4 (02:25→20:05)
[2022-12-20] MEDS: ALBUTEROL 2.5 MG/3 ML NEB SOL NEB SCH ×4 (02:25→20:05)
[2022-12-20] MEDS: ACETAMINOPHEN 325 MG TABLET PO PRN (04:41)
[2022-12-20] MEDS: carvediloL 25 MG TAB PO SCH ×2 (05:30→16:18)
[2022-12-20 06:35] LABS: Magnesium 1.8 mg/dL (1.6-2.4)
[2022-12-20 06:56] LABS: Potassium 3.9 mEq/L (3.5-5.1)
[2022-12-20] MEDS: INSULIN -REGULAR HUMAN 50 UNIT/0.5 ML ML SQ SCH ×4 (07:30→21:00)
[2022-12-20] MEDS ORDERED: MAGNESIUM SULFATE 1 gm IVPB 1 GM/100 ML BAG IV ONE (08:00)
[2022-12-20 08:05] LABS: Absolute Lymphocytes (CBC) 0.3 K/uL (0.7-4.9); Hematocrit 30.5 % (39.6-49.0); Lymphocytes % 3.2 % (15.3-44.8); MCV 95.8 fL (80-100); MPV 9.6 fL (7.6-11.3); RBC Red Blood Cell Count 3.18 M/uL (4.33-5.43)
[2022-12-20] MEDS: ENSURE HIGH PROTEIN 237 ML CAN PO SCH ×2 (09:00→21:02)
[2022-12-20] MEDS ORDERED: POTASSIUM CL SA 10 MEQ TAB PO ONE (09:00)
[2022-12-20] MEDS: AMLODIPINE 5 MG TAB PO SCH (09:38)
[2022-12-20] MEDS: FAMOTIDINE 20 MG/2 ML VIAL IV SCH ×2 (09:39→21:05)
[2022-12-20] MEDS: ENOXAPARIN 40 MG/0.4 ML SQ SCH (09:39)
[2022-12-20] MEDS: GABAPENTIN 300 MG CAP PO SCH ×2 (09:39→21:00)
[2022-12-20] MEDS: ATORVASTATIN 20 MG TAB PO SCH (21:00)
--- NOTE | 2022-12-21 01:16 | PN ---
Date of Progress Note: 12/20/2022 Subjective: The patient was seen this morning for followup. No new complaints or problems reported by patient this morning. He started to have fever, maximum temperature was 100 degrees Fahrenheit ov ernight in last 24 hours. This morning, his pulse was 87 and blood pressure 164/71. The patient was lying in bed, not in distress. There have been some periods of confusion reported by the patient's , who was at bedside this morning. Objective: Vital Signs: Reviewed. HEENT: Unremarkable. Lungs: Clear to auscultation. No wheezing. No rales. Not using any accessory muscles of respirati on. Heart: Sounds normal. Abdomen: Soft. Bowel sounds normal. No guarding, rigidity, tenderness, or distention. Extremities: No leg edema. Laboratory Data: Sodium 138, potassium 3.9, chloride 108, bicarb 21, BUN 39, creatinine 1.80, glucos e 125. CBC was pending this morning when I saw him. Impression: 1.Acute appendicitis. 2.Peritonitis. 3.Sepsis. 4.Acute kidney injury. 5.Chronic obstructive pulmonary disease. 6.Encephalopathy, toxic. Plan: We will go ahead and continue current DVT prophylaxis with Lovenox. Last night, nurse contact ed me and informed me that the patient was having some wheezing and shortness of breath and at that t tesha, IV fluid was discontinued. One dose of Lasix 40 mg IV was ordered and nebulizer treatment was o rdered and that actually did help to provide improvement overnight. This morning, reported that he was having some periods of confusion and this could be very well due to multiple reasons and thos e reasons were explained to including infection, being in the hospital, not getting enough sleep , effect of anesthesia, and pain medication, etc; all these factors could be playing a role here. We will go ahead and continue current antibiotic, which is Zosyn. Continue to help physical therapy wo rk with the patient. Yesterday, the patient could not even sit at the bedside with the physical instructor apy, so today we will see how much therapy he can do with physical therapist. At appropriate time, o nce his condition improves, our plan will be to possibly consider transferring him to inpatient rehab if he needs such assistance, but that will depend on his overall progress here in the hospital. We will repeat blood work tomorrow. YESSY/MODL Voice ID: [id number] Report ID: [id number]
[2022-12-21] MEDS: ALBUTEROL 2.5 MG/3 ML NEB SOL NEB SCH ×4 (01:55→19:50)
[2022-12-21] MEDS: IPRATROPIUM BROM 0.5MG/2.5ML NEB SCH ×4 (01:55→19:50)
[2022-12-21] MEDS: HYDROCODONE/APAP 5/325 MG TAB PO SCH ×4 (02:00→20:00)
[2022-12-21] MEDS: PIPER TAZO 3.375 GM in NA CHLORIDE 0.9% 100 ML IV SCH ×3 (02:11→16:30)
[2022-12-21 04:19] LABS: Absolute Lymphocytes (CBC) 0.4 K/uL (0.7-4.9); Hematocrit 32.5 % (39.6-49.0); Lymphocytes % 4.2 % (15.3-44.8); MCV 94.7 fL (80-100); MPV 9.1 fL (7.6-11.3); RBC Red Blood Cell Count 3.44 M/uL (4.33-5.43)
[2022-12-21 04:27] LABS: Magnesium 1.9 mg/dL (1.6-2.4); Phosphorus 2.1 mg/dL (2.5-4.9); Potassium 4.1 mEq/L (3.5-5.1)
[2022-12-21] MEDS: carvediloL 25 MG TAB PO SCH ×2 (06:19→16:30)
[2022-12-21] MEDS: INSULIN -REGULAR HUMAN 50 UNIT/0.5 ML ML SQ SCH ×4 (07:30→21:00)
[2022-12-21] MEDS: FAMOTIDINE 20 MG/2 ML VIAL IV SCH ×2 (08:33→21:07)
[2022-12-21] MEDS: AMLODIPINE 5 MG TAB PO SCH ×2 (08:33→21:05)
[2022-12-21] MEDS: POTASS/SODIUM PHOSPHATE 1 PKT POWD.PACK PO SCH ×3 (08:33→12:12)
[2022-12-21] MEDS: ENOXAPARIN 40 MG/0.4 ML SQ SCH (08:33)
[2022-12-21] MEDS: GABAPENTIN 300 MG CAP PO SCH ×2 (08:34→21:05)
[2022-12-21] MEDS: ENSURE HIGH PROTEIN 237 ML CAN PO SCH ×3 (08:41→21:00)
--- NOTE | 2022-12-21 08:56 | P.PN ---
Subjective Date of Service: 12/20/22 Subjective: Improving (Patient feels well, tolerating clears, pain well controlled) Physical Examination - Vital Signs Temperature: 99.8 F Blood Pressure: 180/77 Pulse: 71 Respirations: 16 Pulse Ox (%): 90 - Physical Exam General: Alert, In no apparent distress, Cooperative HEENT: Mucous membr. moist/pink Gastrointestinal: Other (soft, mild appropriate TTP, ND, incisions clean, ERMELINDA serosanguanous) Assessment And Plan - Current Problems (Diagnosis) (1) Acute perforated appendicitis Current Visit: Yes Status: Acute Plan: - continue IV antibiotics - continue medical management - advance diet - continue medical management per Dr. Lopez - ambulate with assist with PT - incentive spirometry
[2022-12-21] MEDS: DULERA 200/5 (MOMETASONE/FORMOTEROL) INHALER IH SCH ×2 (10:58→21:00)
--- NOTE | 2022-12-21 11:42 | RAD REPORT ---
EXAM DESCRIPTION: Pratik Single View12/21/2022 11:34 am CLINICAL HISTORY: Shortness of breath COMPARISON: December 18, 2022 FINDINGS: Mild to moderate bilateral pulmonary opacities. Heart is mildly enlarged IMPRESSION: Mild to moderate bilateral pulmonary opacities may represent pulmonary edema or pneumoni a
[2022-12-21] MEDS ORDERED: FUROSEMIDE 40 MG/4 ML VIAL IV ONE (13:00)
--- NOTE | 2022-12-21 14:53 | PN ---
Date of Progress Note: 12/21/2022 Subjective: Patient was seen this morning for followup. Patient's was with him at bedside and patient appeared weaker than normal, but not much different than yesterday. reports that renaldo toscano is really not eating or drinking hardly anything and reports that all day yesterday, he only had hicks lf a can of Ensure and half cup of Jell-O. He has not started ambulating with physical therapy eithe r. Vital signs reviewed. Early yesterday morning, his temperature was 100 degree Fahrenheit. Then, all day he was afebrile and this morning. Last temperature was 99.8 degrees Fahrenheit. His blood pressure tends to be elevated. Objective: Vital Signs: Reviewed. HEENT: Unremarkable. Lungs: Clear to auscultation. Heart: Sounds normal. Abdomen: Soft. No guarding, rigidity. Presence of tenderness around the surgical incision site wit h presence of drainage tube in the right lower quadrant draining clear serosanguineous fluid. Bowel sounds are normal. Extremities: No leg edema. TACK PULLER MACHINE: No focal neurological deficit, but patient has significant generalized weakness to the extent t hat he could not even pull himself forward while he was sitting upright in the bed in order for me to examine his back. Impression: 1.Acute appendicitis. 2.Peritonitis. 3.Sepsis. 4.Debility. 5.Generalized weakness. 6.Malnutrition. 7.Volume depletion. 8.Hypertension. 9.Chronic obstructive pulmonary disease. Plan: We will continue current IV antibiotic, which is Zosyn. Today's blood work shows white count 9.9, hemoglobin 10.9, platelets 198. Sodium 135, potassium 4.1, chloride 106, bicarb 24, BUN 35, cre atinine 1.61, glucose 124. Magnesium 1.9, phosphorus 2.1. We will replace phosphorus per electrolyt e replacement protocol. Continue pain medication per order. Continue current oxygen replacement the rapy. His oxygen saturation when I was in the room with him was 90% to 92%. Physical Therapy to raf gibbsue to work with the patient and I had a long discussion with the patient in presence of his e xplaining importance of nutrition and physical therapy in order for him to be able to return back gayle e. We would like to entertain possibility of moving him up to the inpatient rehab floor at our [facility], but in order for him to go there, he will need to be able to do 3 hours a day of physical therap y. At least on basis of current condition, he will not be able to do that, but I am sure that over a period of next few days if he improves, then definitely that would be option available to him. Othe rwise, he will have to go to longterm and all these details were discussed with him and his . I personally was able to get him to drink 1 entire can of Ensure this morning and he did that witho ut any difficulty and explained to him how important it is for him to eat all his meals and drink 3 c ans of Ensure on a daily basis. After I fed him 1 can of Ensure, patient had his breakfast tray and he was asked to at least eat is eggs and was feeding him his breakfast when I left room. I will see him again tomorrow for followup. We will continue Lovenox for DVT prophylaxis. We will get a c hest x-ray done today for followup. YESSY/MODL Voice ID: [id number] Report ID: [id number]
[2022-12-21] MEDS: ATORVASTATIN 20 MG TAB PO SCH (21:04)
[2022-12-21] MEDS: ACETAMINOPHEN 325 MG TABLET PO PRN (21:07)
[2022-12-22] MEDS: PIPER TAZO 3.375 GM in NA CHLORIDE 0.9% 100 ML IV SCH ×3 (01:54→18:56)
[2022-12-22] MEDS: HYDROCODONE/APAP 5/325 MG TAB PO SCH ×2 (02:00→06:30)
[2022-12-22] MEDS: ALBUTEROL 2.5 MG/3 ML NEB SOL NEB SCH ×4 (02:15→19:25)
[2022-12-22] MEDS: IPRATROPIUM BROM 0.5MG/2.5ML NEB SCH ×4 (02:15→19:25)
[2022-12-22 04:01] LABS: Magnesium 1.8 mg/dL (1.6-2.4); Phosphorus 2.7 mg/dL (2.5-4.9); Potassium 3.5 mEq/L (3.5-5.1)
[2022-12-22] MEDS ORDERED: MAGNESIUM SULFATE 1 gm IVPB 1 GM/100 ML BAG IV ONE (05:21)
[2022-12-22] MEDS ORDERED: POTASSIUM 25 MEQ EFFERV TAB PO ONE (05:22)
[2022-12-22] MEDS: carvediloL 25 MG TAB PO SCH ×2 (06:11→18:53)
[2022-12-22] MEDS: INSULIN -REGULAR HUMAN 50 UNIT/0.5 ML ML SQ SCH ×4 (07:30→21:00)
[2022-12-22] MEDS ORDERED: FUROSEMIDE 40 MG/4 ML VIAL IV ONE (11:09)
[2022-12-22] MEDS: DULERA 200/5 (MOMETASONE/FORMOTEROL) INHALER IH SCH ×2 (11:22→21:00)
[2022-12-22] MEDS: GABAPENTIN 300 MG CAP PO SCH ×2 (11:24→22:07)
[2022-12-22] MEDS: ENSURE HIGH PROTEIN 237 ML CAN PO SCH ×3 (11:24→21:00)
[2022-12-22] MEDS: ENOXAPARIN 40 MG/0.4 ML SQ SCH (11:24)
[2022-12-22] MEDS: AMLODIPINE 5 MG TAB PO SCH ×2 (11:25→22:07)
[2022-12-22] MEDS: FAMOTIDINE 20 MG/2 ML VIAL IV SCH ×2 (11:26→22:07)
[2022-12-22] MEDS: ACETAMINOPHEN 500 MG TAB PO SCH ×2 (11:53→20:00)
--- NOTE | 2022-12-22 12:50 | PN ---
Date of Progress Note: 12/22/2022 Subjective: The patient was seen this morning for followup. His was with him at bedside. Yest erday, he did actually eat better than the day before and had 3 cans of Ensure and some food. His la st bowel movement was day before yesterday. Denies any vomiting. Has had occasional nausea. Objective: Vital Signs: Reviewed. Remains afebrile. HEENT: Unremarkable. Lungs: Clear to auscultation. Not using any accessory muscles of respiration. He is on nasal cannu la oxygen and his oxygen saturation was 96% when I saw him. Heart: Sounds normal. Abdomen: Soft. Bowel sounds normal. No guarding, rigidity. No distention. Presence of mild tende rness around the surgical incision site, better than before. Extremities: No leg edema. Laboratory Data: Sodium 138, potassium 3.5, chloride 105, bicarb 26, BUN 38, creatinine 1.49, glucos e 142, magnesium 1.8, phosphorus 2.7. Chest x-ray from yesterday had shown pulmonary edema versus pn eumonia. Impression: 1.Pulmonary edema. 2.Acute appendicitis. 3.Peritonitis. 4.Sepsis. 5.Debility. 6.Generalized weakness. 7.Malnutrition. 8.Hypertension. 9.Chronic obstructive pulmonary disease. Plan: Yesterday's chest x-ray results reviewed and after that 40 mg Lasix IV x1 dose was ordered yes terday. The patient diuresed very well and today we will give another dose of Lasix 40 mg IV. Clini jone, this appears more to be pulmonary edema than pneumonia. We will continue broad-spectrum antib iotics, Zosyn. Currently, he is responding well to that. Physical Therapy to continue to work with the patient and I encouraged him once again today to try to drink 3 cans of Ensure, eat his meals, an d participate with the Physical Therapy. We will continue current DVT prophylaxis, continue current antihypertensive medication, and we will repeat chest x-ray tomorrow. YESSY/MODL Voice ID: [id number] Report ID: [id number]
[2022-12-22] MEDS ORDERED: PROMETHAZINE INJ 25 MG/ML AMP IV PRN (16:46)
--- NOTE | 2022-12-22 18:03 | RAD REPORT ---
EXAM DESCRIPTION: CT - Abdomen Pelvis W Contrast - 12/22/2022 5:33 pm CLINICAL HISTORY: nausea, decreased bowel sounds COMPARISON: Abdomen Pelvis Wo Contrast dated 12/18/2022 TECHNIQUE: Thin cut axial CT imaging of the abdomen and pelvis was performed following intravenous a dministration of 95 mL Isovue 300. Multiplanar reformats were generated and reviewed. All CT scans are performed using dose optimization technique as appropriate and may include automated exposure control or mA/KV adjustment according to patient size. FINDINGS: Trace left pleural effusion and bibasilar dependent atelectatic changes. The liver, spleen, and pancreas show no suspicious findings. Slightly nodular thickening of the left adrenal gland, stable. Gallbladder is collapsed, limiting evaluation. Symmetric renal function is seen with no hydronephrosis or suspicious renal mass. Pronounced fluid distention of the stomach and pronounced small bowel distention in the upper and aristeo tral abdomen. Relatively gradual transition to nondistended ileum, see axial image 73 among others. Postsurgical changes of laparoscopic surgery, with suture line in the right lower quadrant right be r elated to recent appendicectomy. A right lower quadrant surgical drain is present. Minimal free air a nd free fluid in the pelvis, with trace edema or fluid tracking along the lower retroperitoneum. No h ernia, mass or bulky lymphadenopathy. The urinary bladder is without significant finding. No suspicious bony findings. IMPRESSION: Distended stomach and proximal small bowel, suggestive of ileus rather than low grade ob struction. Postsurgical changes in the right lower quadrant related to recent appendicectomy. Findings include t race residual free air and trace layering free fluid in the pelvis. Trace left pleural effusion and bibasilar dependent atelectatic changes. The findings were discussed with Cassius Valencia on 12/22/2022 at 17:45 hours.
[2022-12-22] MEDS: ATORVASTATIN 20 MG TAB PO SCH (21:00)
[2022-12-23] MEDS: PIPER TAZO 3.375 GM in NA CHLORIDE 0.9% 100 ML IV SCH ×3 (01:03→17:42)
[2022-12-23] MEDS: IPRATROPIUM BROM 0.5MG/2.5ML NEB SCH ×4 (01:15→19:45)
[2022-12-23] MEDS: ALBUTEROL 2.5 MG/3 ML NEB SOL NEB SCH ×4 (01:15→19:45)
[2022-12-23 04:10] LABS: Absolute Lymphocytes (CBC) 0.5 K/uL (0.7-4.9); Lymphocytes % 6.8 % (15.3-44.8); MCV 93.2 fL (80-100); RBC Red Blood Cell Count 3.75 M/uL (4.33-5.43)
[2022-12-23 04:34] LABS: Potassium 3.3 mEq/L (3.5-5.1)
[2022-12-23 05:07] LABS: Magnesium 1.8 mg/dL (1.6-2.4); Phosphorus 3.5 mg/dL (2.5-4.9)
[2022-12-23] MEDS: carvediloL 25 MG TAB PO SCH ×2 (05:56→17:48)
[2022-12-23] MEDS: ACETAMINOPHEN 500 MG TAB PO SCH ×3 (05:57→20:32)
[2022-12-23] MEDS: INSULIN -REGULAR HUMAN 50 UNIT/0.5 ML ML SQ SCH ×4 (07:30→20:29)
[2022-12-23] MEDS ORDERED: MAGNESIUM SULFATE 1 gm IVPB 1 GM/100 ML BAG IV ONE (07:33)
--- NOTE | 2022-12-23 08:51 | PN ---
Date of Progress Note: 12/23/2022 Subjective: The patient was seen this morning for followup. Yesterday afternoon to evening time, bobby warren contacted me and informed me that the patient was having ongoing trouble with nausea throughout t he day and was having more bloating, so at that time nurse was advised to contact Dr. Valencia as we w ere suspecting possibility of ileus and Dr. Valencia ordered a stat CT scan of the abdomen, which show ed evidence of ileus, but no evidence of any obstruction. Dr. Valencia did call me and discussed deta ils with me and he started NG tube to suction and the patient will be kept n.p.o. now with this probl em. This morning when I saw him, the patient's was with him and reports that the patient's conf usion has resolved after discontinuing yesterday all his narcotic pain medication. When I saw the noel dash yesterday, I talked to the patient as well as the patient's and we all were concerned abou t narcotic medications either causing or contributing his confusion problem, so both of them were agr eeable to discontinue narcotic medications and just use Tylenol for the pain control. So today reports that overall he was lot more clear now than before. His distended abdomen has subsided now w ith suction and when I saw him today, NG tube was present, draining greenish colored liquid. The pat ilya has some dry cough, but no expectoration. Objective: Vital Signs: Reviewed. HEENT: Unremarkable. Lungs: Clear to auscultation. Not using accessory muscles of respirations and his oxygen saturation was 94% to 95% when I was in room with him. Heart: Sounds normal. Abdomen: Soft, not distended. No guarding, rigidity, tenderness. Bowel sounds normal. Extremities: No leg edema. Laboratory Data: White count 8, hemoglobin 11.7, platelets 238. Sodium 132, potassium 3.3, chloride 100, bicarb 29, BUN 38, creatinine 1.52, glucose 126, magnesium 1.8, phosphorus 3.5. Impression: 1.Ileus. 2.Hypokalemia. 3.Pulmonary edema. 4.Acute appendicitis, status post surgery. 5.Peritonitis. 6.Sepsis. 7.Generalized weakness. 8.Debility. 9.Chronic obstructive pulmonary disease. Plan: We will continue current oxygen and nebulizer treatment, continue current inhaler per order. We will go ahead and start maintenance IV fluid D5 normal saline at 70 cc/hour, continue NG tube to s uction. Continue current antibiotics, Zosyn, and DVT prophylaxis with Lovenox. I did talk to the pa ekta and his and taught them how to do leg exercises while he is in the bed to start on a daily basis several times a day throughout the day to help improve his leg strength. Replace electrolyte per protocol and we will repeat blood work tomorrow. I will see him tomorrow morning for followup. YESSY/MODL Voice ID: [id number] Report ID: [id number]
[2022-12-23] MEDS: ENSURE HIGH PROTEIN 237 ML CAN PO SCH ×3 (09:00→20:30)
[2022-12-23] MEDS: D5 0.9 NS 1,000 ML IV SCH ×2 (09:58→22:18)
[2022-12-23] MEDS: AMLODIPINE 5 MG TAB PO SCH ×2 (10:00→20:29)
[2022-12-23] MEDS: GABAPENTIN 300 MG CAP PO SCH ×2 (10:00→20:28)
[2022-12-23] MEDS: ENOXAPARIN 40 MG/0.4 ML SQ SCH (10:00)
[2022-12-23] MEDS: FAMOTIDINE 20 MG/2 ML VIAL IV SCH ×2 (10:01→20:29)
[2022-12-23] MEDS: DULERA 200/5 (MOMETASONE/FORMOTEROL) INHALER IH SCH ×2 (10:12→20:30)
[2022-12-23] MEDS ORDERED: SODIUM CHLORIDE 0.9% 10ML INJ IV PRN (11:13)
[2022-12-23] MEDS: KCL 20 MEQ/100 mL IVPB 20 MEQ/100 ML BAG IV SCH ×2 (11:17→13:53)
[2022-12-23] MEDS: PANTOPRAZOLE 40 MG INJ IVP SCH (11:50)
[2022-12-23] MEDS: ATORVASTATIN 20 MG TAB PO SCH (20:28)
[2022-12-23] MEDS: Mupirocin NASAL 2 APPL/1 GM TUBE NAS SCH (20:29)
[2022-12-24] MEDS: ALBUTEROL 2.5 MG/3 ML NEB SOL NEB SCH ×4 (01:15→19:55)
[2022-12-24] MEDS: IPRATROPIUM BROM 0.5MG/2.5ML NEB SCH ×4 (01:15→19:55)
[2022-12-24] MEDS: ACETAMINOPHEN 500 MG TAB PO SCH ×3 (02:53→20:18)
[2022-12-24] MEDS: PIPER TAZO 3.375 GM in NA CHLORIDE 0.9% 100 ML IV SCH ×3 (02:54→17:43)
[2022-12-24 04:16] LABS: Absolute Lymphocytes (CBC) 0.7 K/uL (0.7-4.9); Hematocrit 33.3 % (39.6-49.0); Lymphocytes % 8.9 % (15.3-44.8); MCV 93.1 fL (80-100); MPV 7.9 fL (7.6-11.3); RBC Red Blood Cell Count 3.58 M/uL (4.33-5.43)
[2022-12-24 04:56] LABS: Magnesium 1.9 mg/dL (1.6-2.4); Potassium 3.4 mEq/L (3.5-5.1); Prealbumin 10.3 mg/dL (20-40)
[2022-12-24] MEDS: carvediloL 25 MG TAB PO SCH ×2 (05:46→17:44)
[2022-12-24] MEDS: GABAPENTIN 300 MG CAP PO SCH ×2 (06:33→20:19)
[2022-12-24] MEDS: KCL 20 MEQ/100 mL IVPB 20 MEQ/100 ML BAG IV SCH ×2 (06:52→08:38)
[2022-12-24] MEDS: INSULIN -REGULAR HUMAN 50 UNIT/0.5 ML ML SQ SCH ×4 (07:30→20:21)
[2022-12-24 08:19] LABS: Phosphorus 1.9 mg/dL (2.5-4.9)
[2022-12-24 08:22] LABS: Magnesium 1.9 mg/dL (1.6-2.4); Potassium 3.8 mEq/L (3.5-5.1)
[2022-12-24] MEDS: D5 0.9 NS 1,000 ML IV SCH (08:37)
[2022-12-24] MEDS: DULERA 200/5 (MOMETASONE/FORMOTEROL) INHALER IH SCH ×2 (08:37→20:23)
[2022-12-24] MEDS: PANTOPRAZOLE 40 MG INJ IVP SCH (08:38)
[2022-12-24] MEDS: Mupirocin NASAL 2 APPL/1 GM TUBE NAS SCH ×2 (08:38→20:20)
[2022-12-24] MEDS: cloNIDine HCL 0.1 MG TAB PO PRN ×2 (08:39→14:03)
[2022-12-24] MEDS: FAMOTIDINE 20 MG/2 ML VIAL IV SCH ×2 (08:39→20:21)
[2022-12-24] MEDS: ENOXAPARIN 40 MG/0.4 ML SQ SCH (08:39)
[2022-12-24] MEDS: AMLODIPINE 5 MG TAB PO SCH ×2 (08:39→20:19)
[2022-12-24] MEDS: ENSURE HIGH PROTEIN 237 ML CAN PO SCH ×3 (08:40→20:21)
--- NOTE | 2022-12-24 08:43 | RAD REPORT ---
EXAM DESCRIPTION: RAD - Abdomen 1 View (KUB) - 12/24/2022 6:05 am CLINICAL HISTORY: Abdomen pain FINDINGS: Multiple, mildly to moderately dilated small bowel loops minimally diminished in size. Air within the colon diminished. Surgical drain in place. These findings probably indicate an adynamic ileus. However, if the patient's symptoms do not improve then followup x-ray would be recommended
--- NOTE | 2022-12-24 08:51 | RAD REPORT ---
EXAM DESCRIPTION: Pratik Single View12/24/2022 6:05 am CLINICAL HISTORY: Chest pain COMPARISON: December 23, 2022 FINDINGS: Left lower lobe atelectasis is stable to minimally worse Mild right lower lobe atelectasis unchanged The upper lobes clear Heart is enlarged. PICC line in place
--- NOTE | 2022-12-24 08:55 | PN ---
Date of Progress Note: 12/24/2022 Subjective: Patient was seen this morning for followup. He has some periods of confusion, hallucina tion from time to time. In fact, when I was in the room with him, he had some hallucination as he wa s looking at the wall and thought there was a snake there. In next minute, he is fine talking to me, answering questions appropriately. was with him at bedside. Objective: Vital Signs: Reviewed. HEENT: Unremarkable. Lungs: Clear to auscultation. Heart: Sounds normal. Abdomen: Soft. Bowel sounds normal. No guarding, rigidity, tenderness, distention. Extremities: No leg edema. Laboratory Data: White count 8.3, hemoglobin 11.4, platelets 240. Sodium 139, potassium 3.4, chlori de 107, bicarb 28, BUN 31, creatinine 1.25, glucose 120. Magnesium 1.9. Impression: 1.Acute appendicitis. 2.Sepsis. 3.Peritonitis. 4.Pulmonary edema. 5.Malnutrition. 6.Debility. 7.Generalized weakness. 8.Hypokalemia. 9.Chronic obstructive pulmonary disease. Plan: PICC line was placed yesterday. We will go ahead and start the patient on TPN today. Order w as written and once TPN gets started, we will discontinue IV fluid. Continue current antihypertensiv e medication. Continue current antibiotic, Zosyn. Yesterday, patient was able to get out of the bed and sit in the chair and he was taught leg exercises for him to do it while he is lying down in the bed and was taught also and he was encouraged to continue to do that and continue to work with [facility] Physical therapy. Will continue to follow with Dr. Valencia and I will see him tomorrow for follow up. We will continue current Lovenox for DVT prophylaxis as well. YESSY/MODL Voice ID: [id number] Report ID: [id number]
[2022-12-24] MEDS: AA 5%/D20W/ELECTROLYTES-TPN 2,000 ML, Lipids 20% 250 ML with MULTIVITAMINS INJ 10 ML IV SCH ×6 (09:13→17:00)
[2022-12-24] MEDS ORDERED: NACHLORIDE 0.45% 1,000 ML with POTASSIUM CL 20 MEQ IV SCH ×2 (10:00)
--- NOTE | 2022-12-24 15:25 | RAD REPORT ---
EXAM DESCRIPTION: RAD - Chest Single View - 12/23/2022 11:35 pm CLINICAL HISTORY: 77 years, Male, S/P PICC insertion COMPARISON: Previous report 12/21/2022 FINDINGS: Single view of the chest was obtained portable. No prior films are available for compariso n. The heart is prominent. There is a nasogastric tube within the stomach. There is a right upper tra ambar to PICC line in the cavoatrial junction in good position. Minimal focal area of opacity within th e left lung base. Mild aeration of the right hemidiaphragm. The rest of the soft tissue and bony st ructures demonstrate to be unremarkable. IMPRESSION: Right upper extremity PICC line and nasogastric tube in good position. Minimal focal area of opacity within the left lung base. Electronically signed by: Martinez Lees MD 12/24/2022 12:06 AM CDT Due to temporary technical issues with the PACS/Fluency reporting system, reports are being signed by the in house radiologists without review as a courtesy to insure prompt reporting. The interpreting radiologist is fully responsible for the content of the report.
--- NOTE | 2022-12-24 15:58 | P.PN ---
Subjective Date of Service: 12/21/22 Subjective: No new changes (Patient continues to be tired, pain slowly improving, passing gas tolerating minimal PO intake) Physical Examination - Vital Signs Temperature: 97.1 F Blood Pressure: 186/67 Pulse: 62 Respirations: 20 Pulse Ox (%): 93 - Physical Exam General: Alert, In no apparent distress Gastrointestinal: Other (soft, mild appropriate TTP, mild distention, ERMELINDA serous, incisions clean) Assessment And Plan - Current Problems (Diagnosis) (1) Acute perforated appendicitis Current Visit: Yes Status: Acute Plan: - continue IV antibiotics - continue medical management - advance diet slowly, patient will likely have ileus - continue medical management per Dr. Lopez - ambulate with assist with PT - incentive spirometry
--- NOTE | 2022-12-24 16:01 | P.PN ---
Subjective Date of Service: 12/23/22 Increased nausae, distention, emesis. Physical Examination - Vital Signs Temperature: 97.1 F Blood Pressure: 186/67 Pulse: 62 Respirations: 20 Pulse Ox (%): 93 - Physical Exam General: Alert, In no apparent distress, Cooperative Respiratory: Diminished Gastrointestinal: Other (Mild appropriate TTP, mild distention, tympanic, incisions clean and dry, ERMELINDA remains serous) Assessment And Plan - Current Problems (Diagnosis) (1) Acute perforated appendicitis Current Visit: Yes Status: Acute Plan: - continue IV antibiotics - continue medical management - CT scan showed evidence of ileus, NGT placed, keep to LIWS for post op ileus - PICC line and TPN - continue medical management per Dr. Lopez - ambulate with assist with PT - incentive spirometry
--- NOTE | 2022-12-24 16:02 | P.PN ---
Subjective Date of Service: 12/24/22 Improved pain, distention, no nausea, NGT remains in place, passing gas. Physical Examination - Vital Signs Temperature: 97.1 F Blood Pressure: 186/67 Pulse: 62 Respirations: 20 Pulse Ox (%): 93 - Physical Exam General: Alert, In no apparent distress, Cooperative HEENT: Other (NGT in place - greenish) Respiratory: Diminished Gastrointestinal: Other (Mild appropriate TTP, mild distention, tympanic, incisions clean and dry, ERMELINDA remains serous) Assessment And Plan - Current Problems (Diagnosis) (1) Acute perforated appendicitis Current Visit: Yes Status: Acute Plan: - continue IV antibiotics - continue medical management - CT scan showed evidence of ileus, NGT placed, keep to LIWS for post op ileus - PICC line and TPN - continue medical management per Dr. Lopez - ambulate with assist with PT - incentive spirometry
[2022-12-24] MEDS: ATORVASTATIN 20 MG TAB PO SCH (20:19)
[2022-12-25] MEDS: PIPER TAZO 3.375 GM in NA CHLORIDE 0.9% 100 ML IV SCH ×3 (00:21→17:15)
[2022-12-25] MEDS: IPRATROPIUM BROM 0.5MG/2.5ML NEB SCH ×4 (02:30→20:45)
[2022-12-25] MEDS: ALBUTEROL 2.5 MG/3 ML NEB SOL NEB SCH ×4 (02:30→20:45)
[2022-12-25] MEDS: ACETAMINOPHEN 500 MG TAB PO SCH ×3 (04:26→22:08)
[2022-12-25] MEDS: carvediloL 25 MG TAB PO SCH ×2 (05:12→17:14)
[2022-12-25] MEDS: cloNIDine HCL 0.1 MG TAB PO PRN ×3 (05:14→22:08)
[2022-12-25 05:51] LABS: Absolute Lymphocytes (CBC) 0.7 K/uL (0.7-4.9); Hematocrit 32.1 % (39.6-49.0); Lymphocytes % 8.2 % (15.3-44.8); MCV 93.2 fL (80-100); MPV 7.8 fL (7.6-11.3); RBC Red Blood Cell Count 3.45 M/uL (4.33-5.43)
[2022-12-25 05:57] LABS: Phosphorus 1.9 mg/dL (2.5-4.9); Potassium 3.5 mEq/L (3.5-5.1)
[2022-12-25] MEDS: INSULIN -REGULAR HUMAN 50 UNIT/0.5 ML ML SQ SCH ×4 (07:24→21:00)
[2022-12-25] MEDS: ENOXAPARIN 40 MG/0.4 ML SQ SCH (08:25)
[2022-12-25] MEDS: AMLODIPINE 5 MG TAB PO SCH ×2 (08:26→22:08)
[2022-12-25] MEDS: DULERA 200/5 (MOMETASONE/FORMOTEROL) INHALER IH SCH ×2 (08:26→22:09)
[2022-12-25] MEDS: FAMOTIDINE 20 MG/2 ML VIAL IV SCH ×2 (08:26→22:10)
[2022-12-25] MEDS: GABAPENTIN 300 MG CAP PO SCH ×2 (08:26→22:07)
[2022-12-25] MEDS: PANTOPRAZOLE 40 MG INJ IVP SCH (08:26)
[2022-12-25] MEDS: ENSURE HIGH PROTEIN 237 ML CAN PO SCH ×3 (08:27→21:00)
[2022-12-25] MEDS: Mupirocin NASAL 2 APPL/1 GM TUBE NAS SCH ×2 (09:00→22:09)
[2022-12-25] MEDS ORDERED: LOSARTAN POTASSIUM 50 MG TABLET PO SCH (09:00)
[2022-12-25] MEDS ORDERED: POTASSIUM PHOS IN 0.9 % NACL 15 MMOL/250 ML BAG IV ONE ×2 (09:00→12:00)
[2022-12-25] MEDS ORDERED: AA 5%/D20W/ELECTROLYTES-TPN 2,000 ML IV SCH ×2 (17:00)
[2022-12-25] MEDS: ATORVASTATIN 20 MG TAB PO SCH (22:08)
--- NOTE | 2022-12-25 22:25 | PN ---
Date of Progress Note: 12/25/2022 Subjective: The patient was seen this morning for followup. He was lying in bed. NG tube was in pl cm. was present with him at bedside. Objective: Vital Signs: Reviewed. Temperature 98, pulse 62, respiratory rate 18, blood pressure 18 9/81, oxygen saturation 95%. HEENT: Unremarkable. Lungs: Clear to auscultation. Heart: Sounds normal. Abdomen: Soft. Bowel sounds normal. No guarding, rigidity, tenderness, distention. Extremities: No leg edema. Laboratory Data: White count 8.5, hemoglobin 10.9, platelets 249. Sodium 137, potassium 3.5, chlori de 108, bicarb 28, BUN 26, creatinine 1.13, glucose 165, phosphorus 1.9. Impression: 1.Acute appendicitis. 2.Sepsis. 3.Ileus. 4.Anemia. 5.Chronic obstructive pulmonary disease. 6.Hypertension. Plan: We will go ahead and add losartan as antihypertensive medication. Continue current blood pres sure medications. We will have Physical Therapy continue to work with the patient and the patient's reported that yesterday patient was able to ambulate with physical therapy approximately 25 feet . We will continue to follow up with Dr. Valencia. Continue current IV antibiotics and I will see him tomorrow for followup . YESSY/MODL Voice ID: [id number] Report ID: [id number]
[2022-12-26] MEDS: PIPER TAZO 3.375 GM in NA CHLORIDE 0.9% 100 ML IV SCH ×3 (00:29→17:08)
[2022-12-26] MEDS: IPRATROPIUM BROM 0.5MG/2.5ML NEB SCH ×4 (01:50→21:34)
[2022-12-26] MEDS: ALBUTEROL 2.5 MG/3 ML NEB SOL NEB SCH ×4 (01:50→21:34)
[2022-12-26] MEDS: ACETAMINOPHEN 500 MG TAB PO SCH ×3 (04:42→22:00)
[2022-12-26] MEDS: carvediloL 25 MG TAB PO SCH ×2 (05:50→18:00)
[2022-12-26 06:14] LABS: Absolute Lymphocytes (CBC) 0.7 K/uL (0.7-4.9); Lymphocytes % 8.3 % (15.3-44.8); MPV 8.1 fL (7.6-11.3); RBC Red Blood Cell Count 3.51 M/uL (4.33-5.43)
[2022-12-26 06:26] LABS: Phosphorus 2.5 mg/dL (2.5-4.9); Potassium 3.6 mEq/L (3.5-5.1)
[2022-12-26] MEDS: INSULIN -REGULAR HUMAN 50 UNIT/0.5 ML ML SQ SCH ×4 (07:30→21:00)
--- NOTE | 2022-12-26 08:01 | RAD REPORT ---
EXAM DESCRIPTION: RAD - Abdomen 1 View (KUB) - 12/26/2022 4:45 am CLINICAL HISTORY: Abdomen pain FINDINGS: Overall the caliber small bowel is minimally diminished. The number of Air within the colon remains diminished. Surgical drain in place The patient presumably has an ileus probably less likely partial small bowel obstruction
[2022-12-26] MEDS: GABAPENTIN 300 MG CAP PO SCH ×3 (08:28→21:59)
[2022-12-26] MEDS: AMLODIPINE 5 MG TAB PO SCH ×2 (08:28→22:00)
[2022-12-26] MEDS: LOSARTAN POTASSIUM 50 MG TABLET PO SCH ×2 (08:29→22:01)
--- NOTE | 2022-12-26 08:29 | P.PN ---
Subjective Date of Service: 12/26/22 Improved pain, distention, no nausea, NGT remains in place, passing gas, ambulatory, asking for food. Physical Examination - Vital Signs Temperature: 97.8 F Blood Pressure: 185/62 Pulse: 60 Respirations: 19 Pulse Ox (%): 95 - Physical Exam General: Alert, In no apparent distress, Cooperative Respiratory: Normal air movement Cardiovascular: Regular rate/rhythm Gastrointestinal: Other (soft, mild appropriate TTP, less distended, ERMELINDA serous, no guarding. incisions clean) Assessment And Plan - Current Problems (Diagnosis) (1) Acute perforated appendicitis Current Visit: Yes Status: Acute Plan: - continue IV antibiotics - continue medical management - CT scan showed evidence of ileus, NGT placed, - KUB shows improved bowel gas patter, passing much more gas, ambulatory, output much improved, will give 6 hour clamp trial, if passes will DC NGT and start sips of clears - PICC line and TPN - continue medical management per Dr. Lopez - ambulate with assist with PT - incentive spirometry - Patient may benefit from rehab
[2022-12-26] MEDS: PANTOPRAZOLE 40 MG INJ IVP SCH (08:30)
[2022-12-26] MEDS: DULERA 200/5 (MOMETASONE/FORMOTEROL) INHALER IH SCH ×2 (08:39→22:01)
[2022-12-26] MEDS: ENSURE HIGH PROTEIN 237 ML CAN PO SCH ×3 (08:39→21:00)
[2022-12-26] MEDS: Mupirocin NASAL 2 APPL/1 GM TUBE NAS SCH ×2 (08:40→22:05)
[2022-12-26] MEDS: ENOXAPARIN 40 MG/0.4 ML SQ SCH (08:40)
[2022-12-26] MEDS ORDERED: POTASSIUM PHOS IN 0.9 % NACL 15 MMOL/250 ML BAG IV ONE (09:00)
[2022-12-26] MEDS: FAMOTIDINE 20 MG/2 ML VIAL IV SCH ×2 (09:00→22:00)
--- NOTE | 2022-12-26 12:18 | RAD REPORT ---
EXAM DESCRIPTION: RAD - Chest Single View - 12/26/2022 5:27 am CLINICAL HISTORY: The patient is 77 years old and is Male; COPD, pulm edema TECHNIQUE: Single view of the chest. COMPARISON: December 23, 2022. FINDINGS: Lungs: Retrocardiac consolidation or atelectasis, not significantly changed from the efrem or study. Stable left pleural effusion. Pleural space: No pneumothorax. Heart: Cardiomediastinal silhouette is not significantly changed given the differences in techniq ue. Mediastinum: See above. Bones/joints: The bones and joints are unchanged as visualized. Tubes, lines and devices: NG tube is below the diaphragm. Right PICC line is in the SVC. Upper abdomen: No free air in the visualized upper abdomen. IMPRESSION: 1. Lines and tubes as above. 2. Retrocardiac consolidation or atelectasis, not significantly changed from the prior study. Stabl e left pleural effusion. Electronically signed by: Radha Ramirez MD 12/26/2022 5:37 AM CDT Due to temporary technical issues with the PACS/Fluency reporting system, reports are being signed by the in house radiologist without review as a courtesy to ensure prompt reporting. The interpreting r adiologist is fully responsible for the content of the report.
[2022-12-26] MEDS: cloNIDine HCL 0.1 MG TAB PO PRN (13:03)
[2022-12-26] MEDS: AA 5%/D20W/ELECTROLYTES-TPN 2,000 ML, Lipids 20% 250 ML with MULTIVITAMINS INJ 10 ML IV SCH ×3 (17:08)
--- NOTE | 2022-12-26 20:58 | PN ---
Date of Progress Note: 12/26/2022 Subjective: Patient was seen this morning for followup. No new complaints or problems reported by ewa orellana. Lying in bed, not in distress. Vital signs reviewed. The last temperature 97.8, pulse 60, respiratory rate 19, blood pressure 185/62, oxygen saturation 95%. Physical Examination: HEENT: Unremarkable. Lungs: Clear to auscultation. Heart: Sounds normal. Abdomen: Soft. Bowel sounds normal. No guarding, rigidity, tenderness, distention. Extremities: No leg edema. Laboratory Data: White count 8.1, hemoglobin 11, platelets 240. Sodium 136, potassium 3.6, chloride 109 bicarb 26, BUN 28, creatinine 1.01, glucose 160. Impression: 1.Acute appendicitis, status post appendectomy. 2.Peritonitis. 3.Sepsis. 4.Generalized weakness. 5.Debility. 6.Chronic obstructive pulmonary disease. 7.Hypertension. 8.Diabetic neuropathy. Plan: Patient is having lot of trouble with diabetic neuropathy. He is already on gabapentin 300 mg 2 times a day and we will increase dose to 3 times a day. Blood pressure readings reviewed. His lo sartan, which was started yesterday 25 mg daily in the morning. We will increase dose to twice a day as of today. Continue other current antihypertensive medication. Continue current IV antibiotics a nd Physical Therapy to continue to work with the patient. Patient is receiving TPN and we will continue to follow up with Dr. Valencia. YESSY/MODL Voice ID: [id number] Report ID: [id number]
[2022-12-26] MEDS: ATORVASTATIN 20 MG TAB PO SCH (22:00)
[2022-12-27] MEDS: PIPER TAZO 3.375 GM in NA CHLORIDE 0.9% 100 ML IV SCH ×3 (00:56→17:15)
[2022-12-27] MEDS: cloNIDine HCL 0.1 MG TAB PO PRN ×2 (01:01→14:40)
[2022-12-27] MEDS: ALBUTEROL 2.5 MG/3 ML NEB SOL NEB SCH ×4 (02:00→20:20)
[2022-12-27] MEDS: IPRATROPIUM BROM 0.5MG/2.5ML NEB SCH ×4 (02:00→20:20)
[2022-12-27] MEDS: ACETAMINOPHEN 500 MG TAB PO SCH ×2 (06:11→12:00)
[2022-12-27] MEDS: carvediloL 25 MG TAB PO SCH ×2 (06:11→17:15)
[2022-12-27 06:45] LABS: Potassium 4.2 mEq/L (3.5-5.1)
[2022-12-27 06:53] LABS: Absolute Lymphocytes (CBC) 0.9 K/uL (0.7-4.9); Hematocrit 32.1 % (39.6-49.0); Lymphocytes % 10.9 % (15.3-44.8); MCV 93.6 fL (80-100); MPV 8.3 fL (7.6-11.3); RBC Red Blood Cell Count 3.43 M/uL (4.33-5.43)
[2022-12-27] MEDS: INSULIN -REGULAR HUMAN 50 UNIT/0.5 ML ML SQ SCH ×4 (07:30→21:00)
[2022-12-27] MEDS: LOSARTAN POTASSIUM 50 MG TABLET PO SCH ×2 (08:13→22:04)
[2022-12-27] MEDS: FAMOTIDINE 20 MG/2 ML VIAL IV SCH ×2 (08:14→22:03)
[2022-12-27] MEDS: GABAPENTIN 300 MG CAP PO SCH ×3 (08:14→22:03)
[2022-12-27] MEDS: AMLODIPINE 5 MG TAB PO SCH ×2 (08:14→22:03)
[2022-12-27] MEDS: PANTOPRAZOLE 40 MG INJ IVP SCH (08:16)
[2022-12-27] MEDS: Mupirocin NASAL 2 APPL/1 GM TUBE NAS SCH ×2 (08:17→22:04)
[2022-12-27] MEDS: DULERA 200/5 (MOMETASONE/FORMOTEROL) INHALER IH SCH ×2 (08:17→22:04)
[2022-12-27] MEDS: ENSURE HIGH PROTEIN 237 ML CAN PO SCH ×3 (08:17→21:00)
[2022-12-27] MEDS: ENOXAPARIN 40 MG/0.4 ML SQ SCH (08:18)
[2022-12-27 09:44] VITALS: O2SAT 96
[2022-12-27] MEDS ORDERED: HYDROCODONE/APAP 5/325 MG TAB PO PRN (12:23)
[2022-12-27] MEDS ORDERED: ACETAMINOPHEN 500 MG TAB PO PRN (12:23)
[2022-12-27 17:47] VITALS: BMI 34.3
[2022-12-27] MEDS: ATORVASTATIN 20 MG TAB PO SCH (22:05)
--- NOTE | 2022-12-27 23:04 | PN ---
Date of Progress Note: 12/27/2022 Subjective: Patient was seen this morning for followup. He was lying in bed, not in distress. was with him at bedside. Yesterday, he did ambulate very well with physical therapy and he has done much better and is improving well with physical therapy over last few days. Now, NG tube is out. Joselin alvarenga is on full liquid diet per Dr. Valencia. Denies any nausea, vomiting. Objective: Vital Signs: Reviewed. HEENT: Unremarkable. Lungs: Clear to auscultation. Heart: Sounds normal. Abdomen: Soft. Bowel sounds normal. No guarding, rigidity, tenderness, distention. Extremities: No leg edema. Laboratory Data: White count 8.5, hemoglobin 11, platelets 252. Sodium 141, potassium 4.2, chloride 112, bicarb 25, BUN 28, creatinine 1.08, glucose 189. Impression: 1.Acute appendicitis. 2.Peritonitis. 3.Sepsis. 4.Generalized weakness. 5.Debility. 6.Hypertension. 7.Diabetic neuropathy. Plan: We will go ahead and continue current antibiotic. Continue to work with Physical Therapy. We will continue current gabapentin for diabetic neuropathy. For diabetes, patient is on sliding scale insulin. We will continue that. Blood pressure is still remaining elevated. Last blood pressure t his morning was 183/78. We will go ahead and increase the dose of losartan from 25 mg 2 times a day to 50 mg 2 times a day and continue amlodipine and carvedilol as well as clonidine per order. We fallon l consult inpatient rehab and possible discharge to inpatient rehab tomorrow if his condition remains stable. Details and plan of treatment discussed with the patient and the patient's this morning. YESSY/MODL Voice ID: [id number] Report ID: [id number]
[2022-12-28] MEDS: cloNIDine HCL 0.1 MG TAB PO PRN (00:04)
[2022-12-28] MEDS: PIPER TAZO 3.375 GM in NA CHLORIDE 0.9% 100 ML IV SCH ×2 (00:05→10:03)
[2022-12-28] MEDS: ALBUTEROL 2.5 MG/3 ML NEB SOL NEB SCH ×2 (00:55→08:00)
[2022-12-28] MEDS: IPRATROPIUM BROM 0.5MG/2.5ML NEB SCH ×2 (00:55→08:00)
[2022-12-28] MEDS: carvediloL 25 MG TAB PO SCH (05:57)
[2022-12-28] MEDS: INSULIN -REGULAR HUMAN 50 UNIT/0.5 ML ML SQ SCH (07:30)
[2022-12-28] MEDS: ENSURE HIGH PROTEIN 237 ML CAN PO SCH (09:00)
[2022-12-28] MEDS: DULERA 200/5 (MOMETASONE/FORMOTEROL) INHALER IH SCH (10:02)
[2022-12-28] MEDS: PANTOPRAZOLE 40 MG INJ IVP SCH (10:07)
[2022-12-28] MEDS: Mupirocin NASAL 2 APPL/1 GM TUBE NAS SCH (10:08)
[2022-12-28] MEDS: FAMOTIDINE 20 MG/2 ML VIAL IV SCH (10:08)
[2022-12-28] MEDS: AMLODIPINE 5 MG TAB PO SCH (10:08)
[2022-12-28] MEDS: GABAPENTIN 300 MG CAP PO SCH (10:08)
[2022-12-28] MEDS: LOSARTAN POTASSIUM 50 MG TABLET PO SCH (10:08)
[2022-12-28] MEDS: ENOXAPARIN 40 MG/0.4 ML SQ SCH (10:08)
[2022-12-28 10:19] VITALS: BP 150/66; TEMP 97.2
--- NOTE | 2022-12-28 13:38 | DS ---
Date of Discharge: 12/28/2022 Disposition: Discharged to go to inpatient rehab. Physical Examination: HEENT: Unremarkable. Lungs: Clear to auscultation. Heart: Sounds normal. Abdomen: Soft. Bowel sounds normal. No guarding, rigidity, tenderness, distention. Extremities: No leg edema. Laboratory Data: Last CBC from yesterday, white count 8.5, hemoglobin 11, platelets 253. Last chemistry from yesterday, sodium 141, potassium 4.2, chloride 112, bicarb 25, BUN 28, creatinine 1.08, glucose 189. Discharge Medications And Instructions: Continue all current medications. See copy of transfer order for details. Hospital Course: This is a 77-year-old very pleasant male patient came into emergency room with complaints of abdominal pain. Please see dictated H and P for more information. After patient was evaluated in the emergency room, he was diagnosed as having acute appendicitis. Patient actually had perforated acute appendicitis with peritonitis. He had surgery done on an emergent basis by Dr. Valencia and he was able to do laparoscopic appendectomy and noted that the patient had significant amount of peritonitis with this with some evidence of pus collection in the peritoneal cavity and patient was hemodynamically stable after the surgery. He was admitted to regular medical floor. He started tolerating diet well. IV antibiotic, Zosyn, was started and he has continued to receive Zosyn throughout this hospitalization. Later part of last week and over the weekend, he developed signs of ileus with complaints of abdominal distention and bloating sensation. Repeat CAT scan of the abdomen was done and showed evidence of ileus. No evidence of bowel obstruction and NG tube to low intermittent suction was ordered that actually helped to resolve his symptoms. Subsequently, Dr. Valencia removed the NG tube and started him on diet, which he is tolerating very well. Patient was taught to do leg exercises while in the bed and he started doing that. He started to participate well with the physical therapy and started to ambulate well. Overall, his condition is improving very well now. He did have some pulmonary edema requiring IV Lasix few doses. He had some problem with his COPD requiring nebulizer treatment and inhaler. Overall, patient is doing much better now. He did have some periods of confusion, hallucination and it has improved also. His pain is well controlled with Tylenol. We have discontinued narcotic pain medications. Final Diagnoses: 1. Acute appendicitis. 2. Acute peritonitis. 3. Sepsis. 4. Ileus. 5. Chronic obstructive pulmonary disease. 6. Generalized weakness. 7. Debility. 8. Hypertension. 9. Hyperlipidemia. 10. Type 2 diabetes mellitus. 11. Osteoarthritis, multiple sites. 12. Chronic kidney disease, stage 3A. 13. Encephalopathy, toxic and metabolic. 14. Malnutrition. YESSY/MODL Voice ID: [id number] Report ID: [id number] MTDD
== END 2022-12-28 10:47 | DRG 853 ==
LOC: ER 13:09 → 4TH 15:31
PROVIDERS: ADMIT Internal Medicine; ATTEND Internal Medicine
PROC: 0DN84ZZ Release Small Intestine, Percutaneous Endoscopic Approach (ICD-10-PCS; 2022-12-18)
PROC: 0DTJ4ZZ Resection of Appendix, Percutaneous Endoscopic Approach (ICD-10-PCS; principal; 2022-12-18 16:00)
PROC: 3E0436Z Introduction of Nutritional Substance into Central Vein, Percutaneous Approach (ICD-10-PCS; 2022-12-23)
PROC: 02HV33Z Insertion of Infusion Device into Superior Vena Cava, Percutaneous Approach (ICD-10-PCS; 2022-12-23)
DX: A41.9 Sepsis, unspecified organism (principal); G92.8 Other toxic encephalopathy; K35.21 Acute appendicitis with generalized peritonitis, with abscess; N17.9 Acute kidney failure, unspecified; E46 Unspecified protein-calorie malnutrition; K56.7 Ileus, unspecified; J81.1 Chronic pulmonary edema; E78.5 Hyperlipidemia, unspecified; M19.09 Primary osteoarthritis, other specified site; I12.9 Hypertensive chronic kidney disease with stage 1 through stage 4 chronic kidney disease, or unspecified chronic kidney disease; N18.31 Chronic kidney disease, stage 3a; E11.22 Type 2 diabetes mellitus with diabetic chronic kidney disease; E11.40 Type 2 diabetes mellitus with diabetic neuropathy, unspecified; E86.9 Volume depletion, unspecified; J44.9 Chronic obstructive pulmonary disease, unspecified; F17.210 Nicotine dependence, cigarettes, uncomplicated; Z88.1 Allergy status to other antibiotic agents; Z85.46 Personal history of malignant neoplasm of prostate; Z68.34 Body mass index [BMI] 34.0-34.9, adult
CPT/HCPCS: 36415; 36569; 71045; 74018; 74176; 74177; 80048; 80076; 81001; 82570; 82947; 83605; 83690; 83735; 83880; 84100; 84134; 84484; 85025; 85610; 88304; 93005; 94010; 94760; 96361; 96374; 96375; 97110; 97116; 97161; 97530; 99285; C9113; J1170; J1650; J1815; J1940; J2405; J2543; J2704; J2710; J3010; J3475; J3480; J3535; J7030; J7040; J7042; J7120; J7613; J7644; Q9967

== ENCOUNTER 2022-12-28 11:20 | Inpatient (IN) | payer OTHER ==
--- OUTSIDE RECORDS SUMMARY | 2022-12-28 11:27 | XMS REPORT | Continuity of Care Document ---
:1945 Author Organization [facility] t Address [address] [facility] [address] [place] [id number] Care Team Providers Name Role Phone [phone] Primary Care Physician Unavailable ADRIANA CASTANEDA Attending Clinician Unavailable BERNICE BRODY Attending Clinician Unavailable ASHLI GODINEZ Attending Clinician Unavailable ASHLI GODINEZ Admitting Clinician Unavailable Payers Payer Name Policy Type Policy Number Effective Date Expiration Date S ource MEDICARE PART A [id number] 2010 AND B 00:00:00 [employer] NATE BAILEY [id number] 2019 00:00:00 Problems Condition Condition Condition Status Onset Resolution Last Treating Co mments Source Name Details Category Date Date Treatment Clinician Date PAD PAD Disease Active [facility] (periphera (periphera 1-14 st l artery l artery 00:00: Hospit a disease) disease) 00 l Bilateral Bilateral Disease Active 2020-0 Met hodi carotid carotid 1-14 st artery [...] Date Stop Date Source Natural father Stroke [facility] Maternal uncle Heart [facility] Natural mother [facility] Paternal uncle Heart attack [facility] Social History Social Habit Start Date Stop Date Quantity Comments Source History of tobacco 1961-01-20 Cigar Smoker Meth odist use 00:00:00 [facility] Gender identity Judaism [facility] Sexual orientation [facility] Tobacco use and 2021-05-02 2021-05-02 Smokeless Judaism exposure 00:00:00 00:00:00 tobacco non-user Hospital Cigarettes smoked 2021-05-02 2021-05-[address] current (pack per 00:00:00 00:00:00 Hospita l day) - Reported Cigarette 2021-05-02 2021-05-02 Judaism pack-years 00:00:00 00:00:00 Hospital Alcohol intake 2021-05-02 2021-05-02 Lifetime Judaism 00:00:00 00:00:00 non-drinker Hospital (finding) History of Social 2021-05-02 2021-05-[address] function 00:00:00 00:00:00 [facility] Tobacco Comment 2021-05-02 2021-05-02 enjoy small [facility] t 00:00:00 00:00:00 ciggerlo cigars [facility] Sex [birth year] Judaism 00:00:00 00:00:00 Hospital Smoking Status Start Date Stop Date Source Smokes tobacco daily 2021-05-02 00:00:00 [facility] Medications Ordered Filled Start Stop Current Ordering [...] (106 37 daily. l mg iron) tablet pantoprazol 2020-07 Yes 40mg QD Take 40 mg [facility] e 0-[address] (PROTONIX) 11:13: daily. Hospi ta 40 MG EC 37 l tablet ferrous 2020-07 Yes 1{tbl} QD Take 1 Method i fumarate 0-[address] (FERROCITE) 11:13: mouth Hospi ta 324 mg (106 37 daily. l mg iron) tablet TURMERIC Yes 2000mg QD Take 2,000 M ethodi ORAL 4-[address] 13:25: mouth Hospita 26 daily. l TURMERIC 2020-0 Yes 2000mg QD Take 2,000 M ethodi ORAL 4-[address] 13:25: mouth Hospita 26 daily. l gabapentin 2020-0 Yes [id number] 300mg Q.5D Take 1 [facility] (NEURONTIN) 4-[address] 300 mg 00:00: (300 mg Hospita capsule 00 total) by l mouth 2 (two) times a day. gabapentin 2020-0 Yes [id number] 300mg Q.5D Take 1 [facility] (NEURONTIN) 4-[address] 300 mg 00:00: (300 mg Hospita capsule 00 total) by l mouth 2 (two) times a day. atorvastati Yes 20mg QD Take 20 mg [facility] n (LIPITOR) 9-[address] 20 MG 00:00: every Hospita tablet 00 evening. l carvedilol 2018-0 Yes Take by Meth burak (COREG) 9-[address] 12.5 MG 00:00: Taking 1 Hospit a tablet 00 1/2 tablet l twice a day atorvastati Yes 20mg QD Take 20 mg [facility] (LIPITOR) 9-[address] 20 MG 00:00: every Hospita tablet 00 evening. l carvedilol 0 Yes Take by Meth burak (COREG) 9-[address] 12.5 MG 00:00: Taking 1 Hospit a tablet 00 1/2 tablet l twice a day clopidogrel 2018- Yes 75mg QD Take 75 mg [facility] (PLAVIX) 75 8-[address] mg tablet 00:00: daily. Hospit a l lisinopril- 0 Yes 1{tbl} Q.5D Take 1 Me thodi hydrochloro 8-[address] thiazide 00:00: mouth 2 Hospit a (PRINZIDE,Z 00 (two) l ESTORETIC) times a 20-12.5 mg day. per tablet clopidogrel 2018-0 Yes 75mg QD Take 75 mg [facility] (PLAVIX) 75 8-[address] mg tablet 00:00: daily. Hospit a 00 l lisinopril- Yes 1{tbl} Q.5D Take 1 Me thodi hydrochloro 8-[address] thiazide 00:00: mouth 2 Hospit a (PRINZIDE,Z 00 (two) l ESTORETIC) times a 20-12.5 mg day. per tablet hydrALAZINE 2019-0 Yes 20mg Q.5D Take 20 mg [facility] (APRESOLINE 8-[address] ) 10 MG 00:00: (two) Hospita tablet 00 times a l day. hydrALAZINE 2019-0 Yes 20mg Q.5D Take 20 mg [facility] (APRESOLINE 8-[address] ) 10 MG 00:00: (two) Hospita tablet 00 times a l day. Procedures This patient has no known procedures. Plan of Care Planned Activity Planned Date Details Comments Source Future Scheduled 2022-11-02 COVID-19 VACCINE (#1) [facility] Test 15:15:52 [code = COVID-19 VACCINE (#1)] Future Scheduled 2022-11-02 65+ PNEUMOCOCCAL [facility] Test 15:15:52 VACCINE (1 - PCV) [code = 65+ PNEUMOCOCCAL VACCINE (1 - PCV)] Future Scheduled 2022-11-02 Hepatitis C screening [facility] Test 15:15:52 (procedure) [code = 929205392] Future Scheduled 2022-11-02 SHINGLES VACCINES (1 Met [facility] Test 15:15:52 of 2) [code = SHINGLES VACCINES (1 of 2)] Future Scheduled 2022-11-02 INFLUENZA VACCINE [facility] Test 15:15:52 [code = INFLUENZA VACCINE] Future Scheduled 2022-11-02 COVID-19 VACCINE (#1) [facility] Test 15:15:52 [code = COVID-19 VACCINE (#1)] Future Scheduled 2022-11-02 65+ PNEUMOCOCCAL [facility] Test 15:15:52 VACCINE (1 - PCV) [code = 65+ PNEUMOCOCCAL VACCINE (1 - PCV)] Future Scheduled 2022-11-02 Hepatitis C screening [facility] Test 15:15:52 (procedure) [code = 145145244] Future Scheduled 2022-11-02 SHINGLES VACCINES (1 Met [facility] Test 15:15:52 of 2) [code = SHINGLES VACCINES (1 of 2)] Future Scheduled 2022-11-02 INFLUENZA VACCINE [facility] Test 15:15:52 [code = INFLUENZA VACCINE] Encounters Start End Encounter Admission Attending Care Care Encounter Source Date/Time Date/Time Type Type Clinicians Facility Department ID 2021-05-02 2021-05-02 Outpatient [facility] [id number] [place] 00:00:00 00:00:00 ADRIANA [address] 2021-05-02 2021-05-02 [facility] [id number] [place] 00:00:00 00:00:00 ADRIANA [address] 2020-08-01 2020-08-01 Outpatient ALEJANDRO [facility] [id number] 00:00:00 00:00:00 Mariano WITT 2019-08-26 2019-08-26 [facility]patient [facility] [id number] [place] 00:00:00 00:00:00 ASHLI [address] Results This patient has no known results.
[2022-12-28 11:43] VITALS: BMI 34.3
[2022-12-28] MEDS ORDERED: ACETAMINOPHEN 500 MG TAB PO PRN (13:09)
[2022-12-28] MEDS ORDERED: ALBUTEROL 2.5 MG/3 ML NEB SOL NEB PRN (13:10)
[2022-12-28] MEDS ORDERED: GLUCAGON 1 MG/VIAL IM PRN (13:18)
[2022-12-28] MEDS ORDERED: HYDROCODONE/APAP 5/325 MG TAB PO PRN (13:18)
[2022-12-28] MEDS ORDERED: D50W 25 GM/50 ML SYRINGE IV PRN (13:18)
[2022-12-28] MEDS ORDERED: IPRATROPIUM BROM 0.5MG/2.5ML NEB PRN (13:20)
[2022-12-28] MEDS ORDERED: D10W 125 ML IV PRN (13:23)
[2022-12-28] MEDS ORDERED: ONDANSETRON 4 MG (ODT) TAB PO PRN (13:24)
[2022-12-28] MEDS: ENSURE HIGH PROTEIN 237 ML CAN PO SCH ×2 (14:00→19:27)
[2022-12-28] MEDS: GABAPENTIN 300 MG CAP PO SCH ×2 (15:23→19:27)
[2022-12-28] MEDS: INSULIN -REGULAR HUMAN 50 UNIT/0.5 ML ML SQ SCH ×2 (16:30→20:09)
[2022-12-28] MEDS: PIPER TAZO 3.375 GM in NA CHLORIDE 0.9% 100 ML IV SCH (17:14)
[2022-12-28] MEDS: carvediloL 25 MG TAB PO SCH (17:15)
[2022-12-28 18:53] LABS: Specific Gravity 1.018 (1.005-1.030); Urine Bacteria <20 /HPF (<20); Urine Bilirubin NEGATIVE (Negative); Urine Blood Negative (Negative); Urine Clarity Clear (Clear); Urine Color Yellow (Yellow); Urine Crystals Unidentified Few /HPF (None Seen); Urine Glucose NEGATIVE (Negative); Urine Protein TRACE (Negative); Urine RBC <5 /HPF (None Seen); Urine Urobilinogen 1+ (Normal); Urine pH 5.5 (5.0-7.0)
[2022-12-28] MEDS: LOSARTAN POTASSIUM 50 MG TABLET PO SCH (19:25)
[2022-12-28] MEDS: NYSTATIN PWDR 100000 UNIT/GM TOP SCH (19:26)
[2022-12-28] MEDS: AMLODIPINE 5 MG TAB PO SCH (19:26)
[2022-12-28] MEDS: FAMOTIDINE 20 MG TAB PO SCH (19:27)
[2022-12-28] MEDS: DULERA 200/5 (MOMETASONE/FORMOTEROL) INHALER IH SCH (19:27)
[2022-12-28] MEDS: ATORVASTATIN 20 MG TAB PO SCH (19:27)
[2022-12-28] MEDS: FLUTICASONE 50MCG NASAL SPRAY NAS SCH (19:28)
[2022-12-28] MEDS ORDERED: DULERA IN SCH (20:00)
[2022-12-29] MEDS: PIPER TAZO 3.375 GM in NA CHLORIDE 0.9% 100 ML IV SCH ×3 (01:21→17:27)
--- NOTE | 2022-12-29 01:31 | HP ---
Date of Admission: 12/28/2022 Time Of Service: 5 p.m. Chief Complaint: I had appendicitis and had surgery. History Of Present Illness: Mr. Bhatia is a 77-year-old right-handed patient with history of hypertension, dyslipidemia, COPD, diabetes mellitus type 2, chronic kidney disease, stage 3, diabe tic neuropathy, who developed abdominal pain and came to [facility] Emergency Room. He was diagnosed with acute appendicitis. He was evaluated by Surgery and had appendectomy. It was identif ied that there was a ruptured appendix at the time and the patient did have some free air in the pelv is and post surgery, there were left pleural effusion, bibasilar atelectasis changes. Following surg rock, the patient did have TPN for a while and had to have his medications adjusted including for diab etic neuropathy, hypertension, and his chronic kidney disease. As a result of the acute postoperativ e state and comorbid conditions, the patient became debilitated and it was determined that he could b e best served by aggressive inpatient physical therapy and inpatient rehabilitation unit, and is ther efore, admitted for physical, occupational, and if need be speech therapy in the rehabilitation unit. Past Medical History: Type 2 diabetes mellitus, diabetic peripheral neuropathy, hypertension, dyslip idemia, aortic sclerosis, and prostate cancer, status post radiation treatment 2009, osteoarthritis a t multiple sites, monoclonal gammopathy of uncertain significance, iron deficiency anemia, chronic ob structive pulmonary disease. Past Surgical History: Carotid artery stents bilaterally, knee and back surgeries. Allergies: SULFA DRUGS. Medications: Tylenol 1000 mg every 8 hours as needed, Essex 5/325 every 6 hours as needed, albuterol nebulizer 2.5 mg every 6 hours as needed, Norvasc 5 mg twice daily, Lipitor 20 mg at bedtime, Coreg 12.5 mg twice daily, Catapres 0.1 mg 3 times daily as needed, Lovenox 40 mg subcutaneously daily, Pep carla 20 mg twice daily, Flonase 2 sprays twice daily, gabapentin 300 mg 3 times daily. He has receive d antibiotics, that is Pipracil and tazobactam 3.375 mg every 8 hours, managed by Dr. Lopez, Protonix 40 mg daily. Social History: The patient smokes tobacco cigarettes daily. Denies alcohol or IV drug use. Family History: Stroke in father, dementia in sister. Laboratory Studies: White blood cell count 8.5, hemoglobin 11, platelets 253. INR 1.25, glucose ran ged from 121 to 161. Sodium 141, potassium 4.2, chloride 112, carbon dioxide 25, BUN 28, creatinine 1.08, calcium 8.8. Urinalysis: Trace protein, 1+ ketones. X-ray imaging: A CT scan of the abdomen on 12/18 shows ruptured appendix with appendicitis, trace la raciel of fluid in the pelvis. Electrocardiogram shows premature ventricular complexes, otherwise normal ECG. KUB x-ray on 12/26 shows small bowel is minimally diminished, air within the colon is diminished. It is noted an ileus is less likely and less likely small bowel obstruction. Abdominal CT scan 12/22 shows distended stomach proximal small bowel suggestive of ileus rather than low-grade obstruction. Postsurgical changes in the right lower quadrant related to recent appendecto my. Findings include trace residual free air, trace clearing fluid in the pelvis, trace left pleural effusion and bibasilar dependent atelectasis changes. Note, the patient was seen in hospital by his primary care physician, Dr. Lopez, and surgeon Dr. Valencia. Current Review Of Systems: Mild abdominal pain, some difficulty getting food in and out, so that is difficulty with bowel movements and appetite. Otherwise, currently denies any fevers or chills. No significant myalgias, arthralgias, or rash. No headaches. No psychiatric complaints. No genitourin donya issues. Otherwise negative on a 10-point systems review other than mentioned above. Physical Examination: Vital Signs: Blood pressure 150/70, pulse 60, respiratory rate 18, temperature 97.2, oxygen saturati on 97%. General: Mr. Bhatia is resting comfortably, in no significant distress HEENT: He is normocephalic, atraumatic. Sclerae anicteric. Oropharynx moist. Neck: Supple. Chest: Clear. Heart: Regular. Abdomen: Nondistended. Extremities: Show no significant edema or cyanosis. He has a stocking-glove loss light touch and te mperature, diffuse weakness in upper and lower extremities. Slow, but intact coordination. In terms of gait, he did ambulate 75 feet with moderate assistance to maximum assistance, requires maximum as sistance for supine to sit transfers. Current Functional Status: Currently for eating, he is at setup assistance also. Hygiene, he is set up assistance. Moderate assistance for toilet transfer and shower transfer. Upper body dressing, mo derate assistance. Lower body dressing, requires maximum assistance. Footwear, maximum assistance. Sit to stand, maximum assistance. Lying to sitting on side of bed, maximal assistance. He was able to ambulate with a rolling walker up to 150 feet actually. Rehab And Medical Assessment And Plan: Mr. Bhatia is admitted to the rehabilitation unit with a reha bilitation impairment category of 20, which is miscellaneous. His impairment group code is 16. Felisha litlinnette, noncardiac, nonpulmonary. His etiologic diagnosis is acute peritonitis with sepsis. His activ e comorbidities, appendectomy, chronic kidney disease, chronic obstructive pulmonary disease, diabete s mellitus type 2 with diabetic peripheral neuropathy, dyslipidemia, hypertension, osteoarthritis, di ffuse weakness. Plan: 1.He will have physical and occupational therapy 3 hours a day, 5 of 7 days. If required, he will b e evaluated by Speech Therapy and will continue with speech therapy 0.5 hours, 5 of 7 days. 2.He has multiple comorbid conditions as listed. For dyslipidemia, Lipitor 20 mg at bedtime. Blood pressure managed by Coreg 25 mg twice daily and Catapres 0.1 mg 3 times daily as needed for systolic blood pressure greater than 170. Pain will be managed by Essex 5/325 or Tylenol. His COPD issues a ddressed with albuterol 2.5 nebulizer daily. Please note, he is also on Norvasc for his blood pressu re, Pepcid for GE reflux, Lovenox 40 mg subcutaneously daily for DVT prophylaxis, gabapentin 300 mg 3 times daily for diabetic peripheral neuropathy. He will continue piperacillin-tazobactam for his se psis and a ruptured appendix and that is managed by Dr. Lopez. Impact Of Comorbidities: He is receiving IV antibiotics every 8 hours and the rehab schedule will be worked around that. Does have the potential for an ileus and recent appendectomy perhaps is contrib uting to decreased GI motility, but that is likely to improve as he goes further away from the acute surgery. He is on narcotics, which could aggravate the issues of bowel movement. Rehab Specific Plan: 1.Mr. Bhatia will have physical and occupational therapy to improve his ability to dress upper and l ower body, to transfer, to get on the toilet, to get into the shower, to perform showering and toilet ing properly, to ambulate over 250 feet with modified independence, to go up and down 10 steps with m odified independence and to have his cognitive functioning at the modified independence level. 2.Have retirement to address all of his medical issues as outlined. 3.He will have daily physician evaluation to monitor and address his medical conditions, address hi s pain, address risk for worsening infection, deep vein thrombosis, sleep, and any other medical issu es that arise. 4.Mr. Bhatia has a good understanding of the reason for his admission to the inpatient rehabilitatio n unit and he has potential to make good improvement and will require physical and occupational thera py. Additionally if services are required from the Respiratory Service, Nutrition Service, Wound Car e Service, the Surgery Service, those will be requested. Given his complex medical condition and ris k of further complications, rehabilitation services cannot be safely or effectively performed at a lo [facility] level facility such as retirement. Barriers To Discharge: Currently, he is on IV antibiotics every 6 hours, potential for C difficile c olitis will have to be evaluated and he will have white blood cell count potential for fever followe d and antibiotic should be only used as appropriate and will be discontinued with consultation with h is primary care physician, Dr. Lopez, who is following the patient daily. Length of stay estimated to be about 10 days. Disposition: Home. Prognosis: Good. Rehab Goals: 1.Become independent with upper and lower body dressing, toileting, and showering. 2.Ambulate 250 feet independently. 3.Up and down 10 steps independently. 4.Manage all medical conditions so they are optimized. 5.Have his pain issues addressed. 6.Have the antibiotics be finished prior to being discharged and have bowel movements returned to no rmal prior to being discharged. 7.I acknowledge I have personally performed a full physical examination on Mr. Alex Bhatia, no lat er than 24 hours after admission to the inpatient rehabilitation unit and determined that he is able to tolerate the above course of treatment at an intensive level for a reasonable period of time. A d etailed individualized plan of care for him will be completed by hospital day 4 based on the preadmis lisa screen, history and physical and therapy evaluations. BETITO/HOLLY Voice ID: [id number]
[2022-12-29 05:09] LABS: Absolute Lymphocytes (CBC) 1.2 K/uL (0.7-4.9); Lymphocytes % 10.8 % (15.3-44.8); MCV 93.8 fL (80-100); MPV 8.7 fL (7.6-11.3)
[2022-12-29 05:25] LABS: Albumin 2.2 g/dL (3.4-5.0); Magnesium 1.8 mg/dL (1.6-2.4); Prealbumin 16.7 mg/dL (20-40)
[2022-12-29] MEDS: PANTOPRAZOLE 40MG TABLET PO SCH (05:25)
[2022-12-29] MEDS: carvediloL 25 MG TAB PO SCH ×2 (05:25→17:16)
[2022-12-29] MEDS: INSULIN -REGULAR HUMAN 50 UNIT/0.5 ML ML SQ SCH ×4 (07:13→20:30)
[2022-12-29] MEDS: AMLODIPINE 5 MG TAB PO SCH ×2 (07:14→20:29)
[2022-12-29] MEDS ORDERED: NA CHLORIDE 0.9% 250 ML ONE (07:33)
[2022-12-29] MEDS ORDERED: ALBUTEROL 2.5 MG/3 ML NEB SOL NEB PRN (08:00)
[2022-12-29] MEDS ORDERED: ENOXAPARIN 40 MG/0.4 ML SQ SCH (08:00)
[2022-12-29] MEDS ORDERED: IPRATROPIUM BROM 0.5MG/2.5ML NEB PRN (08:00)
[2022-12-29] MEDS: GABAPENTIN 300 MG CAP PO SCH ×3 (09:25→20:28)
[2022-12-29] MEDS: DULERA 200/5 (MOMETASONE/FORMOTEROL) INHALER IH SCH ×2 (09:26→20:27)
[2022-12-29] MEDS: LOSARTAN POTASSIUM 50 MG TABLET PO SCH ×2 (09:26→20:29)
[2022-12-29] MEDS: FAMOTIDINE 20 MG TAB PO SCH ×2 (09:26→20:28)
[2022-12-29] MEDS: FLUTICASONE 50MCG NASAL SPRAY NAS SCH ×2 (09:26→20:26)
[2022-12-29] MEDS: ENSURE HIGH PROTEIN 237 ML CAN PO SCH ×3 (09:27→20:30)
[2022-12-29] MEDS: NYSTATIN PWDR 100000 UNIT/GM TOP SCH ×2 (09:27→20:27)
[2022-12-29] MEDS ORDERED: HYDRALAZINE HCL 10 MG TABLET PO ONE (09:29)
[2022-12-29] MEDS ORDERED: MAGNESIUM HYDROXIDE 8% 30 ML PO ONE (09:30)
--- NOTE | 2022-12-29 11:08 | PN ---
Date of Progress Note: 12/29/2022 Subjective: The patient was seen this morning for followup. He was on the rehab floor this morning. Denies any new complaints except complaining of constipation and has not had a bowel movement in la st several days. He is tolerating diet very well. Denies any abdominal pain, nausea, vomiting. He has some dry cough and is requesting some cough medications. When I saw him, his was with him a t bedside. Physical Examination: Vital Signs: Reviewed. Temperature 97.2, pulse 63, respiratory rate 18, blood pressure 160/79, oxyg en saturation 95%. HEENT: Unremarkable. Lungs: Clear to auscultation. Heart: Sounds normal. Abdomen: Soft. Bowel sounds normal. No guarding, rigidity, tenderness, distention. Extremities: No leg edema. Laboratory Data: White count 10.7, hemoglobin 10.1 platelets 293. Sodium 136, potassium 4, chloride 107, bicarb 25, BUN 27, creatinine 1.23, glucose 123. Serum albumin 2.2. Impression: 1.Mild nutrition, severe. 2.Generalized weakness. 3.Debility. 4.Cough. 5.Chronic obstructive pulmonary disease. 6.Hypertension. 7.Constipation. 8.Sepsis. 9.Peritonitis secondary to acute appendicitis, status post appendectomy. Plan: We will go ahead and start the patient on stool softener, Colace 100 mg 2 times a day, and ord er milk of magnesia 1 time dose today. We will discontinue hydrocodone as patient does not need that , not only that, but we were concerned about some confusion and hallucination contributed by narcotic pain medications, so we will discontinue that and only give Tylenol per order for pain control. We will add hydralazine 10 mg 2 times a day on top of continuation of other current antihypertensive med ications. We will also go ahead and give Robitussin DM for cough. Physical therapy to be provided u nder guidance of Dr. Roldan and I will see him tomorrow for followup. Continue Lovenox for DVT pro phylaxis. YESSY/MODL Voice ID: [id number] Report ID: [id number]
[2022-12-29] MEDS: GUAIFENESIN/DM 5 ML UCUP PO PRN (14:25)
[2022-12-29] MEDS: ENOXAPARIN 40 MG/0.4 ML SQ SCH (17:43)
[2022-12-29] MEDS: HYDRALAZINE HCL 10 MG TABLET PO SCH (20:28)
[2022-12-29] MEDS: DOCUSATE NA 100 MG CAP PO SCH (20:28)
[2022-12-29] MEDS: ATORVASTATIN 20 MG TAB PO SCH (20:28)
[2022-12-30] MEDS: PIPER TAZO 3.375 GM in NA CHLORIDE 0.9% 100 ML IV SCH ×3 (00:03→16:43)
[2022-12-30] MEDS: carvediloL 25 MG TAB PO SCH ×2 (05:01→16:55)
[2022-12-30] MEDS: PANTOPRAZOLE 40MG TABLET PO SCH (05:19)
[2022-12-30] MEDS: INSULIN -REGULAR HUMAN 50 UNIT/0.5 ML ML SQ SCH ×4 (07:30→20:17)
[2022-12-30] MEDS: AMLODIPINE 5 MG TAB PO SCH ×2 (07:47→20:14)
[2022-12-30] MEDS: LOSARTAN POTASSIUM 50 MG TABLET PO SCH ×2 (07:48→20:16)
[2022-12-30] MEDS: CLOPIDOGREL 75 MG TABLET PO SCH (07:49)
[2022-12-30] MEDS: DOCUSATE NA 100 MG CAP PO SCH ×2 (07:49→20:14)
[2022-12-30] MEDS: FAMOTIDINE 20 MG TAB PO SCH ×2 (07:49→20:14)
[2022-12-30] MEDS: GABAPENTIN 300 MG CAP PO SCH ×3 (07:49→20:15)
[2022-12-30] MEDS: DULERA 200/5 (MOMETASONE/FORMOTEROL) INHALER IH SCH ×2 (07:50→20:16)
[2022-12-30] MEDS: ENSURE HIGH PROTEIN 237 ML CAN PO SCH ×4 (07:50→20:17)
[2022-12-30] MEDS: FLUTICASONE 50MCG NASAL SPRAY NAS SCH ×2 (07:50→20:16)
[2022-12-30] MEDS: NYSTATIN PWDR 100000 UNIT/GM TOP SCH ×2 (07:50→20:16)
[2022-12-30] MEDS: HYDRALAZINE HCL 10 MG TABLET PO SCH ×2 (09:31→20:15)
--- NOTE | 2022-12-30 10:32 | PN ---
Date of Progress Note: 12/30/2022 Subjective: Patient was seen this morning for followup. He did have a bowel movement yesterday and he is doing well with the physical therapy, ambulating with assistance. Denies any abdominal pain, n ausea, or vomiting. Objective: Vital Signs: Reviewed. HEENT: Unremarkable. Lungs: Clear to auscultation. Heart: Sounds normal. Abdomen: Soft. Bowel sounds normal. No guarding, rigidity, tenderness, distention. Extremities: No leg edema. Impression: 1.Hypertension. 2.Type 2 diabetes mellitus. 3.Diabetic neuropathy. 4.Generalized weakness. 5.Debility. Plan: We will go ahead and continue current medications. Continue current IV Zosyn for peritonitis and sepsis that the patient had as a result of perforated appendicitis. We will continue physical th erapy under guidance of Dr. Roldan. Continue current antihypertensive medication and DVT prophylax is. Leg exercises were taught and advice for patient to continue on his own while he is lying down i n the bed. YESSY/MODL Voice ID: [id number] Report ID: [id number]
[2022-12-30] MEDS: ENOXAPARIN 40 MG/0.4 ML SQ SCH (16:43)
[2022-12-30] MEDS ORDERED: ENOXAPARIN 40 MG/0.4 ML SQ SCH (17:00)
[2022-12-30] MEDS: ATORVASTATIN 20 MG TAB PO SCH (20:15)
[2022-12-30] MEDS: MELATONIN 3 MG TABLET PO PRN (20:37)
[2022-12-31] MEDS: PIPER TAZO 3.375 GM in NA CHLORIDE 0.9% 100 ML IV SCH ×3 (00:11→17:01)
[2022-12-31] MEDS: carvediloL 25 MG TAB PO SCH ×2 (05:01→16:59)
[2022-12-31] MEDS: PANTOPRAZOLE 40MG TABLET PO SCH (05:30)
[2022-12-31] MEDS ORDERED: PIPERACIL/TAZO 3.375 GM VIAL IV ONE (06:52)
[2022-12-31] MEDS: FLUTICASONE 50MCG NASAL SPRAY NAS SCH ×2 (07:12→20:09)
[2022-12-31] MEDS: NYSTATIN PWDR 100000 UNIT/GM TOP SCH ×2 (07:12→20:09)
[2022-12-31] MEDS: DULERA 200/5 (MOMETASONE/FORMOTEROL) INHALER IH SCH ×2 (07:12→20:09)
[2022-12-31] MEDS: AMLODIPINE 5 MG TAB PO SCH ×2 (07:13→20:10)
[2022-12-31] MEDS: LOSARTAN POTASSIUM 50 MG TABLET PO SCH ×2 (07:13→20:10)
[2022-12-31] MEDS: GABAPENTIN 300 MG CAP PO SCH ×3 (07:14→20:10)
[2022-12-31] MEDS: FAMOTIDINE 20 MG TAB PO SCH ×2 (07:14→20:10)
[2022-12-31] MEDS: CLOPIDOGREL 75 MG TABLET PO SCH (07:14)
[2022-12-31] MEDS: DOCUSATE NA 100 MG CAP PO SCH ×2 (07:14→20:10)
[2022-12-31] MEDS: INSULIN -REGULAR HUMAN 50 UNIT/0.5 ML ML SQ SCH ×4 (07:30→20:11)
[2022-12-31] MEDS: ENSURE HIGH PROTEIN 237 ML CAN PO SCH ×3 (09:00→20:11)
[2022-12-31] MEDS: HYDRALAZINE HCL 10 MG TABLET PO SCH ×2 (09:58→20:11)
[2022-12-31] MEDS: LIDOCAINE 4% PATCH TOP SCH (13:40)
[2022-12-31] MEDS: ENOXAPARIN 40 MG/0.4 ML SQ SCH (16:59)
[2022-12-31] MEDS: MELATONIN 3 MG TABLET PO PRN (20:10)
[2022-12-31] MEDS: ATORVASTATIN 20 MG TAB PO SCH (20:10)
--- NOTE | 2022-12-31 21:20 | PN ---
Date of Progress Note: 12/31/2022 Subjective: The patient was seen this morning for followup. He was sitting at the bedside and was present with him. Denies any new complaints. Objective: Vital Signs: Reviewed. HEENT: Unremarkable. Lungs: Clear to auscultation. Heart: Sounds normal. Abdomen: Soft. Bowel sounds normal. No guarding, rigidity, tenderness, distention. Extremities: No leg edema. Impression: 1.Hypertension. 2.Osteoarthritis, multiple sites. 3.Diabetes mellitus type 2 with diabetic neuropathy. 4.Sepsis. 5.Peritonitis due to acute appendicitis, status post surgery. 6.Generalized weakness. 7.Debility. Plan: The patient's blood pressure is under much better control compared to before and we will alf nue current antihypertensive medications. Continue current gabapentin. We will continue Lovenox for DVT prophylaxis. Continue IV Zosyn and physical therapy and occupational therapy under guidance of Dr. Roldan. I will see him tomorrow for followup. YESSY/MODL Voice ID: [id number] Report ID: [id number]
--- NOTE | 2022-12-31 23:19 | PN ---
Date of Progress Note: 12/31/2022 Time Of Service: 1:30 p.m. Subjective: Mr. Bhatia is doing better today with therapy. No new complaints. Denied any significa nt abdominal pain at the surgical sites. Review of Systems: No fevers, chills, nausea, or vomiting. No significant myalgias, arthralgias, rash, headache, or jocelyn ght change. Physical Examination: Vital Signs: Blood pressure 173/76, down to 116/55, pulse 64, respiratory rate 16, temperature 97.2, and oxygen saturation 92%. General: Mr. Bhatia is resting comfortably and in no significant distress. HEENT: He does appear normocephalic, atraumatic. Sclerae anicteric. Oropharynx pink and moist. Neck: Supple. Chest: Clear. Neurologic: He does have a stocking-glove loss to light touch and temperature and good hemostasis at the surgical site. Laboratory Studies: No new laboratory studies except on the 3rd white blood cell count was normal at 10.7, hemoglobin slightly low at 10.1, and platelets 293. Blood sugars ranged from 127 to 140. X-ray/imaging: No new x-rays or imaging. Medications: Tylenol 1000 mg every 8 hours as needed, albuterol nebulizer 2.5 mg every 6 hours as ne eded, Norvasc 5 mg twice daily, Lipitor 20 mg at bedtime, Coreg 25 mg twice daily, Catapres 0.1 mg 3 times daily as needed for hypertension with systolic greater than 170, Plavix 75 mg daily, Colace 100 mg twice daily, Lovenox 40 mg subcutaneously daily, Pepcid 20 mg daily, Flonase 2 sprays twice daily as needed, gabapentin 300 mg 3 times daily, guaifenesin 10 mg every 6 hours as needed for cough, Apr esoline 10 mg daily, ipratropium 0.25 mg every 6 hours as needed for wheezing, lidocaine patch applie d 1 topically to back daily, Cozaar 50 mg twice daily, melatonin 3 mg at bedtime, nystatin applied to pically as needed to wound, and Protonix 40 mg at bedtime. He is continuing with piperacillin/tazoba ctam 3.375 mg every 8 hours. Note, the patient does have some pain in the lower back for which that patch is applied. Current Functional Status: Today avo-gf-xwqqye transfers done with minimum assistance and supine-to- sit transfers done with contact guard assistance. He was able to posterior propel a wheelchair 130 f eet with the physical therapist in tow. He ambulated 120 feet twice and 90 feet with contact guard t o minimum assistance using a rolling walker. He ascended and descended 5 steps with minimum assistan ce using bilateral handrails. With occupational therapy, minimum assistance with clothing management of upper body and moderate assistance for lower body clothing management. With his speech, he recal led 2 of 3 unrelated pictures after 3 minutes and then 3 of 3 after 5 minutes using visualization. T emporal orientation tasks completed with 75% accuracy without verbal cues. Progress Towards Rehabilitation Goals: Mr. Bhatia is making good progress overall towards his goals of becoming independent with upper and lower body dressing, toileting, transferring and performing co gnitive functioning independently. Assessment: Mr. Bhatia is a 77-year-old patient in the rehabilitation unit with debility. He is sta tus post appendectomy with peritonitis and sepsis. He has chronic kidney disease, chronic obstructiv e pulmonary disease, diabetes mellitus, diabetic peripheral neuropathy, dyslipidemia, hypertension, o steoarthritis, and diffuse weakness. Plan: 1.Continue with physical, occupational, and speech therapy 3.5 hours, 5 of 7 days. 2.He has multiple comorbid conditions, which are managed by his primary care physician Dr. Lopez. Comorbid Conditions That Continue To Impact His Rehabilitation Process: At this point, his comorbids are stably managed and do not negatively impact his ability to improve. Of note, he is making good progress overall, but fairly st heriberto although he could still improve. BETITO/MODL Voice ID: [id number] Report ID: [id number]
[2023-01-01] MEDS: PIPER TAZO 3.375 GM in NA CHLORIDE 0.9% 100 ML IV SCH ×3 (00:01→17:19)
[2023-01-01] MEDS: carvediloL 25 MG TAB PO SCH ×2 (05:03→17:18)
[2023-01-01] MEDS: PANTOPRAZOLE 40MG TABLET PO SCH (05:03)
[2023-01-01] MEDS: LIDOCAINE 4% PATCH TOP SCH (07:11)
[2023-01-01] MEDS: DOCUSATE NA 100 MG CAP PO SCH ×2 (07:12→19:52)
[2023-01-01] MEDS: LOSARTAN POTASSIUM 50 MG TABLET PO SCH ×2 (07:12→19:52)
[2023-01-01] MEDS: FAMOTIDINE 20 MG TAB PO SCH ×2 (07:12→19:52)
[2023-01-01] MEDS: AMLODIPINE 5 MG TAB PO SCH ×2 (07:12→19:52)
[2023-01-01] MEDS: CLOPIDOGREL 75 MG TABLET PO SCH (07:13)
[2023-01-01] MEDS: ENSURE HIGH PROTEIN 237 ML CAN PO SCH ×3 (07:13→19:52)
[2023-01-01] MEDS: DULERA 200/5 (MOMETASONE/FORMOTEROL) INHALER IH SCH ×2 (07:13→19:51)
[2023-01-01] MEDS: GABAPENTIN 300 MG CAP PO SCH ×3 (07:13→19:51)
[2023-01-01] MEDS: FLUTICASONE 50MCG NASAL SPRAY NAS SCH ×2 (07:13→19:51)
[2023-01-01] MEDS: NYSTATIN PWDR 100000 UNIT/GM TOP SCH ×2 (07:14→19:51)
[2023-01-01] MEDS: INSULIN -REGULAR HUMAN 50 UNIT/0.5 ML ML SQ SCH ×4 (07:30→20:08)
[2023-01-01] MEDS: HYDRALAZINE HCL 10 MG TABLET PO SCH ×2 (09:42→19:51)
[2023-01-01] MEDS: ENOXAPARIN 40 MG/0.4 ML SQ SCH (17:19)
[2023-01-01] MEDS: MELATONIN 3 MG TABLET PO PRN (19:52)
[2023-01-01] MEDS: ATORVASTATIN 20 MG TAB PO SCH (19:52)
--- NOTE | 2023-01-01 23:31 | PN ---
Date of Progress Note: 01/01/2023 Time Of Service: 1:30 p.m. Subjective: Mr. Bhatia is doing well. No significant complaints. He has no significant at the [facility] where he had surgery. Review of Systems: No significant fevers, chills, nausea, vomiting, myalgias, arthralgias, or any other complaints. Physical Examination: Vital Signs: Blood pressure 137/59, pulse 87, respiratory rate 18, temperature 98.3, and oxygen satu ration 97%. He did have some very elevated blood pressures earlier in the morning and his orthostati cs show while lying blood pressure is 205/100 and pulse 60, while sitting blood pressure 193/87 and p ulse 60, and while standing blood pressure 123/60 and pulse of 59. Neurologic: In terms of his examination, he has diffuse weakness of lower extremities. He has no fo neno weakness. Otherwise, no other significant changes on examination. Laboratory Studies: Blood work shows blood sugars ranged from 123 to 162. X-ray/imaging: No new x-rays or imaging. Medications: His medication regimen has been reviewed and he has an additional lidocaine patch place d today. Otherwise, no other changes to his medication regimen, which has been outlined. Current Functional Status: Currently sit to stand and inilvo-xi-zot transfers with standby assistanc e and verbal cues. He ambulated 125 feet 4 times with contact guard assistance using a rolling walke r and mobilized a wheelchair 150 feet with standby assistance and verbal cues. With his occupational therapy, he did dowel exercises multiple times up to 20 times to improve his strength. With speech, he worked on improving short-term memory, working memory, orientation skills, and sustained attentio n tasks. He did require minimum assistance for sustained attention tasks, spatial and temporal orien tation tasks, and working memory. He did recall 3 of 3 unrelated items after 5 minutes. Progress Towards Rehabilitation Goals: Mr. Bhatia is making fair overall progress with his therapy i ncluding physical, occupational, and speech therapy. His distance could improve and his ability to g et towards modified independence also for upper and lower body dressing toileting transferring is the re and he has the potential to do that. His cognitive functioning and ability to communicate also hicks ve potential to improve significantly. Assessment: Mr. Bhatia is a 77-year-old patient in the rehabilitation unit with debility. He has pe ritonitis, sepsis, and is status post appendectomy. He has chronic obstructive pulmonary disease, ch ronic kidney disease, diabetes mellitus, diabetic peripheral neuropathy, dyslipidemia, hypertension, and osteoarthritis along with diffuse weakness from his debility. Plan: 1.Continue with physical, occupational, and speech therapy for 3.5 hours, 5 of 7 days. 2.His list of comorbids as noted above is managed by continuing medications that are outlined and al so with the help of Dr. Lopez, his primary care physician. Comorbids That Continue To Impact His Rehabilitation Process: His comorbids are well managed and do not negatively impact his rehabilitation. BETITO/MODL Voice ID: [id number] Report ID: [id number]
[2023-01-02] MEDS: PIPER TAZO 3.375 GM in NA CHLORIDE 0.9% 100 ML IV SCH ×3 (00:19→17:04)
[2023-01-02] MEDS: PANTOPRAZOLE 40MG TABLET PO SCH (05:31)
[2023-01-02] MEDS: carvediloL 25 MG TAB PO SCH ×2 (05:31→17:03)
--- NOTE | 2023-01-02 07:08 | PN ---
Date of Progress Note: 01/01/2023 Subjective: The patient was seen this morning for followup. He was sitting in the chair. Denied an y complaints. was with him at bedside. He is participating well with physical therapy. Had a bowel movement yesterday. Denies any abdominal pain, nausea, or vomiting. Objective: Vital Signs: Reviewed. HEENT: Unremarkable. Lungs: Clear to auscultation. No rhonchi. No rales. Heart: Sounds normal. Abdomen: Soft. Bowel sounds normal. No guarding, rigidity, tenderness, distention. Extremities: No leg edema. Impression: 1.Hypertension. 2.Generalized weakness. 3.Debility. 4.Osteoarthritis, multiple sites. 5.Type 2 diabetes mellitus with diabetic neuropathy. 6.Sepsis. 7.Peritonitis secondary to acute appendicitis. Plan: We will go ahead and continue current medication, continue current antibiotics. The patient i s on IV Zosyn and we will go ahead and continue physical therapy under guidance of Dr. Roldan. The patient's blood pressure is under much better control now. We will continue current antihypertensiv e medication with monitoring. If necessary, adjust medications. Continue current DVT prophylaxis an d I will see him tomorrow for followup. YESSY/MODL Voice ID: [id number] Report ID: [id number]
[2023-01-02] MEDS: INSULIN -REGULAR HUMAN 50 UNIT/0.5 ML ML SQ SCH ×4 (07:30→19:32)
[2023-01-02] MEDS: FLUTICASONE 50MCG NASAL SPRAY NAS SCH ×2 (07:30→19:31)
[2023-01-02] MEDS: NYSTATIN PWDR 100000 UNIT/GM TOP SCH ×2 (07:31→19:31)
[2023-01-02] MEDS: DULERA 200/5 (MOMETASONE/FORMOTEROL) INHALER IH SCH ×2 (07:31→19:31)
[2023-01-02] MEDS: LOSARTAN POTASSIUM 50 MG TABLET PO SCH ×2 (07:31→19:30)
[2023-01-02] MEDS: FAMOTIDINE 20 MG TAB PO SCH ×2 (07:31→19:31)
[2023-01-02] MEDS: DOCUSATE NA 100 MG CAP PO SCH ×2 (07:31→19:30)
[2023-01-02] MEDS: AMLODIPINE 5 MG TAB PO SCH ×2 (07:35→19:30)
[2023-01-02] MEDS: GABAPENTIN 300 MG CAP PO SCH ×3 (07:35→19:30)
[2023-01-02] MEDS: CLOPIDOGREL 75 MG TABLET PO SCH (07:36)
[2023-01-02] MEDS: ENSURE HIGH PROTEIN 237 ML CAN PO SCH ×3 (07:37→19:31)
[2023-01-02] MEDS: HYDRALAZINE HCL 10 MG TABLET PO SCH ×2 (09:48→19:30)
[2023-01-02] MEDS: LIDOCAINE 4% PATCH TOP SCH (09:48)
[2023-01-02] MEDS: ENOXAPARIN 40 MG/0.4 ML SQ SCH (17:05)
[2023-01-02] MEDS: ATORVASTATIN 20 MG TAB PO SCH (19:30)
--- NOTE | 2023-01-02 21:05 | PN ---
Date of Progress Note: 01/02/2023 Subjective: The patient was seen this morning for followup. He was sitting at bedside, not in any d istress. Denies any complaints. He is able to stand up at bedside on his own and ambulating well wi physical therapy. Denies any complaint of chest pain, shortness of breath. Objective: Vital Signs: Reviewed. HEENT: Examination unremarkable. Lungs: Clear to auscultation. Heart: Sounds normal. Abdomen: Soft. Bowel sounds normal. No guarding, rigidity, tenderness, distention. Extremities: No leg edema. Impression: 1.Sepsis. 2.Peritonitis. 3.Generalized weakness. 4.Debility. 5.Hypertension. Plan: We will go ahead and continue Zosyn. The patient has received it for now 15 days. After toda y's antibiotic use, we will discontinue it as of tomorrow morning. We will leave the PICC line in pl cm. In next 2 days, if the patient's condition remained stable, then we will plan to remove PICC li ne. Continue current antihypertensive medication. Blood pressure is under much better control now t presley before. Physical therapy to be continued under guidance of Dr. Roldan. See him tomorrow for shy rocha. YESSY/MODL Voice ID: [id number] Report ID: [id number]
--- NOTE | 2023-01-02 21:51 | PN ---
Date of Progress Note: 01/02/2023 Time Of Service: 1:30 p.m. Subjective: Mr. Bhatia is resting comfortably. He is in no acute distress. He has no complaints in terms of his pain in the abdominal area where he had surgery. Review of Systems: No fevers, chills, nausea, vomiting, myalgias, or arthralgias. Physical Examination: Vital Signs: Blood pressure 175/73, pulse 63, respiratory rate 16, and temperature 97. General: Mr. Bhatia is doing well. No focal deficits. Lungs: Clear to auscultation. Abdomen: Soft. Extremities: No significant edema. He has diffuse weakness in the lower and upper extremities. Laboratory Studies: Blood sugars ranged from 122 to 155. X-ray/imaging: No new x-rays or imaging. Medications: His medications have been reviewed and remain unchanged. He is managed by marbella Carmona s primary care physician for his comorbid conditions. Current Functional Status: Today he ambulated 100 feet, another 125 feet, and 75 feet 4 times with c ontact guard assistance using a rolling walker. He did have decreased shuffling and improved heel st rike ambulation pattern. He did vrkmhv-aa-rju transfers with independence. Verbal cues were require d for his technique. Kra-bh-ovmxi transfers with standby assistance using a rolling walker. Toilet transfers with contact guard assistance. With occupational therapy, upper body dressing done with st andby assistance. He was able to ambulate to the gym and back, that is 220 feet with contact guard a ssistance and a rolling walker. He did take 2 seated rest breaks with minimum duration with each eden ak. With his speech therapy, he demonstrated sustained attention to a task for 5 minutes with 88% ac curacy on a structured task. He was oriented to temporal concepts with 75% accuracy with moderate cu es with the use of the communication board. Progress Toward Rehabilitation Goals: Mr. Bhatia is making great progress towards his goals of becom ing modified independent with upper and lower body dressing, transferring, toileting, showering, ambu lating 250 feet with modified independence, and also performing cognitive functioning with modified i ndependence. Assessment: Mr. Bhatia is a 77-year-old patient in the rehabilitation unit with debility. He has hicks d peritonitis status post appendectomy and is treated for sepsis. He has chronic obstructive pulmona ry disease, chronic kidney disease, diabetes with peripheral neuropathy, dyslipidemia, hypertension, and osteoarthritis. Plan: 1.Continue with physical, occupational, and speech therapy for 3.5 hours, 5 of 7 days. 2.He will continue his multiple medications for comorbid conditions including his Norvasc twice shanthi y, Coreg 25 mg twice daily, and Lipitor 20 mg at bedtime. Continue Plavix, Apresoline, Cozaar, allegra onin, Zofran, and Protonix. 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 LB/MODL Voice ID: [id number] Report ID: [id number]
[2023-01-03 04:28] LABS: Absolute Lymphocytes (CBC) 1.1 K/uL (0.7-4.9); Hematocrit 30.8 % (39.6-49.0); Lymphocytes % 14.4 % (15.3-44.8); MCV 93.7 fL (80-100); MPV 8.9 fL (7.6-11.3); RBC Red Blood Cell Count 3.29 M/uL (4.33-5.43)
[2023-01-03 04:37] LABS: Albumin 2.5 g/dL (3.4-5.0); Magnesium 1.8 mg/dL (1.6-2.4); Potassium 3.7 mEq/L (3.5-5.1); Prealbumin 20.4 mg/dL (20-40)
[2023-01-03] MEDS: cloNIDine HCL 0.1 MG TAB PO PRN (05:00)
[2023-01-03] MEDS: carvediloL 25 MG TAB PO SCH ×2 (05:00→16:59)
[2023-01-03] MEDS: PANTOPRAZOLE 40MG TABLET PO SCH (05:33)
[2023-01-03] MEDS: INSULIN -REGULAR HUMAN 50 UNIT/0.5 ML ML SQ SCH ×4 (07:05→20:00)
[2023-01-03] MEDS: LOSARTAN POTASSIUM 50 MG TABLET PO SCH ×3 (08:00→20:04)
[2023-01-03] MEDS: HYDRALAZINE HCL 10 MG TABLET PO SCH ×2 (08:00→20:04)
[2023-01-03] MEDS: FAMOTIDINE 20 MG TAB PO SCH ×3 (08:00→20:03)
[2023-01-03] MEDS: AMLODIPINE 5 MG TAB PO SCH ×4 (08:00→20:04)
[2023-01-03] MEDS: LIDOCAINE 4% PATCH TOP SCH (09:17)
[2023-01-03] MEDS: DOCUSATE NA 100 MG CAP PO SCH ×2 (09:18→20:04)
[2023-01-03] MEDS: FLUTICASONE 50MCG NASAL SPRAY NAS SCH ×2 (09:18→20:05)
[2023-01-03] MEDS: GABAPENTIN 300 MG CAP PO SCH ×3 (09:18→20:03)
[2023-01-03] MEDS: CLOPIDOGREL 75 MG TABLET PO SCH (09:18)
[2023-01-03] MEDS: NYSTATIN PWDR 100000 UNIT/GM TOP SCH ×2 (09:20→20:05)
[2023-01-03] MEDS: DULERA 200/5 (MOMETASONE/FORMOTEROL) INHALER IH SCH ×2 (09:20→20:05)
[2023-01-03] MEDS: ENSURE HIGH PROTEIN 237 ML CAN PO SCH ×3 (09:25→20:06)
[2023-01-03] MEDS: ENOXAPARIN 40 MG/0.4 ML SQ SCH (16:59)
--- NOTE | 2023-01-03 19:11 | PN ---
Date of Progress Note: 01/03/2023 Fscl-Bo-Eqzm Progress Note Time Of Service: 1:30 p.m. Subjective: Mr. Bhatia is resting comfortably. He is in no acute distress. He has no new complaint s. The abdominal surgical area does not cause any significant pain. Review of Systems: No new complaints there as well. No fevers or chills. No significant myalgias, arthralgias, rash, h eadache, or weight change. No psychiatric issues. No active gastrointestinal or genitourinary issue s. Physical Examination: Vital Signs: Blood pressure 158/73, pulse 60, respiratory rate of 16, temperature is 97.1, and oxyge n saturation 94%. General: Mr. Bhatia is resting comfortably. HEENT: He is normocephalic, atraumatic. Sclerae anicteric. Oropharynx pink and moist. Neck: Supple. Chest: Clear. Extremities: No clubbing, cyanosis, or edema. Mild to diffuse weakness in the lower extremities. Laboratory Studies: White blood cell count 7.4, hemoglobin 10.3, and platelets 297. Sodium 144, pot assium 3.7, chloride 113, BUN 27, creatinine 1.34, glucose ranged from 116 to 132, calcium 8.9, magne sium 1.8, and prealbumin 20.4. X-ray/imaging: No new x-rays or imaging. Medications: Have remained unchanged and have been reviewed. Current Functional Status: Today he ambulated 150 feet, another 100 feet, and 90 feet 4 times with c ontact guard assistance using a rolling walker. He performed ajqwwa-ou-cpe transfers independently a nd ebp-pq-flytv transfers independently with a rolling walker. He did ali-hi-jmwya transfers to the toilet with a rolling walker with standby assistance. With his speech therapy, he used visualization of verbal rehearsal as memory aids to name 2 of 3 unrelated items after 5 minutes. He used spaced r etrieval and recalled 3 of 3 items after an additional 5 minute increment. Progress Towards Rehabilitation Goals: Mr. Bhatia is making great progress towards his goals of beco kacey independent with his upper and lower body dressing, transferring, toileting, showering, and ambu lating 250 feet with modified independence. He is going to work on his steps, to try to go up and do wn at least 5 steps with modified independence and perform cognitive functioning independently. Assessment: Mr. Bhatia is a 77-year-old patient in the rehabilitation unit with debility. He has co morbid peritonitis status post appendectomy and has been treated for sepsis. He also has dyslipidemi a, hypertension, peripheral neuropathy, diabetes mellitus, chronic kidney disease, chronic obstructiv e pulmonary disease, and osteoarthritis. Plan: 1.Continue with physical, occupational, and speech therapy for 3.5 hours, 5 of 7 days. 2.Continue Norvasc and Coreg for hypertension. 3.Continue Lipitor for dyslipidemia. 4.Continue Plavix for stroke risk reduction. 5.Melatonin, Zofran, and Protonix; all continued. 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 LB/MODL Voice ID: [id number] Report ID: [id number]
[2023-01-03] MEDS: ATORVASTATIN 20 MG TAB PO SCH (20:04)
[2023-01-03] MEDS: CARBIDOPA/LEVODOPA 25/100 TAB PO SCH (20:04)
--- NOTE | 2023-01-03 21:08 | PN ---
Date of Progress Note: 01/03/2023 Subjective: Patient was seen this morning for followup. No new complaints or problems reported. Objective: General: Patient is lying in bed, not in distress. Vital Signs: Reviewed. HEENT: Unremarkable. Lungs: Clear to auscultation. Heart: Sounds normal. Abdomen: Soft. Bowel sounds normal. No guarding, rigidity, tenderness, distention. Extremities: No leg edema. Laboratory Data: White count 7.4, hemoglobin 10.3, platelets 297. Sodium 144, potassium 3.7, chlori de 113, bicarb 25, BUN 27, creatinine 1.34, glucose 116. Albumin 2.5. Impression: 1.Sepsis, resolved. 2.Acute peritonitis, resolved. 3.Hypertension. 4.Generalized weakness. 5.Debility. 6.Anemia. 7.Malnutrition. Plan: We will go ahead and continue current antihypertensive medication. Continue current DVT proph ylaxis. We will go ahead and continue physical therapy under guidance of Dr. Roldan and patient is improving very well. tells me that from rehab point of view, patient is scheduled to go home o n Saturday, which is day after tomorrow and I will see him tomorrow for followup. We did discuss opt ion of either Home Health with home physical therapy upon discharge from rehab floor or outpatient ph ysical therapy and the patient's would prefer outpatient physical therapy, so I have asked her t o communicate with the nursing staff today and social services designee here on the rehab floor to make those arra ngements. YESSY/MODL Voice ID: [id number] Report ID: [id number]
[2023-01-04] MEDS: carvediloL 25 MG TAB PO SCH ×2 (05:04→17:34)
[2023-01-04] MEDS: PANTOPRAZOLE 40MG TABLET PO SCH (05:30)
[2023-01-04] MEDS: ACETAMINOPHEN 500 MG TAB PO PRN (06:37)
[2023-01-04] MEDS: LIDOCAINE 4% PATCH TOP SCH (07:16)
[2023-01-04] MEDS: INSULIN -REGULAR HUMAN 50 UNIT/0.5 ML ML SQ SCH ×2 (08:00→20:00)
[2023-01-04] MEDS: GABAPENTIN 300 MG CAP PO SCH ×3 (08:14→19:59)
[2023-01-04] MEDS: CARBIDOPA/LEVODOPA 25/100 TAB PO SCH ×2 (08:14→19:58)
[2023-01-04] MEDS: FAMOTIDINE 20 MG TAB PO SCH ×2 (08:15→20:03)
[2023-01-04] MEDS: CLOPIDOGREL 75 MG TABLET PO SCH (08:15)
[2023-01-04] MEDS: AMLODIPINE 5 MG TAB PO SCH ×2 (08:15→19:58)
[2023-01-04] MEDS: DOCUSATE NA 100 MG CAP PO SCH ×3 (08:15→20:00)
[2023-01-04] MEDS: HYDRALAZINE HCL 10 MG TABLET PO SCH ×2 (08:21→19:58)
[2023-01-04] MEDS: NYSTATIN PWDR 100000 UNIT/GM TOP SCH ×2 (08:21→20:01)
[2023-01-04] MEDS: DULERA 200/5 (MOMETASONE/FORMOTEROL) INHALER IH SCH ×2 (08:22→20:01)
[2023-01-04] MEDS: FLUTICASONE 50MCG NASAL SPRAY NAS SCH ×2 (08:22→20:01)
[2023-01-04] MEDS: ENSURE HIGH PROTEIN 237 ML CAN PO SCH ×3 (09:44→20:02)
[2023-01-04] MEDS: LOSARTAN POTASSIUM 50 MG TABLET PO SCH ×2 (12:35→19:58)
--- NOTE | 2023-01-04 13:05 | P.RH.PN ---
Estimated Length of Stay: 13 Expected Discharge Date: 01/08/23 Discharge Disposition Plan: Home Family Support: Yes Fdc Goal: Mobility, Transfers, Self Care Vital Signs: Last Vital Signs Temp 97.7 F 01/04/23 07:21 Pulse 57 01/04/23 08:15 Resp 18 01/04/23 07:21 BP 123/62 01/04/23 08:15 Pulse Ox 95 01/04/23 07:21 Laboratory: Laboratory Last Values WBC 7.40 thou/uL (4.3-10.9) 01/03/23 03:50 RBC 3.29 M/uL (4.33-5.43) L 01/03/23 03:50 Hgb 10.3 g/dL (13.6-17.9) L 01/03/23 03:50 Hct 30.8 % (39.6-49.0) L 01/03/23 03:50 MCV 93.7 fL (80-100) 01/03/23 03:50 MCH 31.3 pg (27.0-35.0) 01/03/23 03:50 MCHC 33.4 g/dL (32.0-36.0) 01/03/23 03:50 RDW 13.2 % (12.1-15.2) 01/03/23 03:50 Plt Count 297 thou/uL (152-406) 01/03/23 03:50 MPV 8.9 fL (7.6-11.3) 01/03/23 03:50 Neutrophils % 70.8 % (41.7-73.7) 01/03/23 03:50 Lymphocytes % 14.4 % (15.3-44.8) L 01/03/23 03:50 Monocytes % 10.6 % (3.3-12.3) 01/03/23 03:50 Eosinophils % 2.9 % (0-4.4) 01/03/23 03:50 Basophils % 1.3 % (0-1.3) 01/03/23 03:50 Absolute Neutrophils 5.2 K/uL (1.8-8.0) 01/03/23 03:50 Absolute Lymphocytes 1.1 K/uL (0.7-4.9) 01/03/23 03:50 Absolute Monocytes 0.8 K/uL (0.1-1.3) 01/03/23 03:50 Absolute Eosinophils 0.2 K/uL (0-0.5) 01/03/23 03:50 Absolute Basophils 0.1 K/uL (0-0.5) 01/03/23 03:50 Sodium 144 mEq/L (136-145) 01/03/23 03:50 Potassium 3.7 mEq/L (3.5-5.1) 01/03/23 03:50 Chloride 113 mEq/L (98-107) H 01/03/23 03:50 Carbon Dioxide 25 mEq/L (21-32) 01/03/23 03:50 Anion Gap 9.7 mEq/L (5.0-15.0) 01/03/23 03:50 BUN 27 mg/dL (7-18) H 01/03/23 03:50 Creatinine 1.34 mg/dL (0.70-1.30) H 01/03/23 03:50 Est GFR (CKD-EPI) 55 ml/min (=/>90) L 01/03/23 03:50 Glucose 116 mg/dL (74-106) H 01/03/23 03:50 POC Glucose 116 mg/dL (65-120) 01/04/23 06:59 Calcium 8.9 mg/dL (8.5-10.1) 01/03/23 03:50 Magnesium 1.8 mg/dL (1.6-2.4) 01/03/23 03:50 Albumin 2.5 g/dL (3.4-5.0) L 01/03/23 03:50 Prealbumin 20.4 mg/dL (20-40) 01/03/23 03:50 Urine Color Yellow (Yellow) 12/28/22 17:30 Urine Clarity Clear (Clear) 12/28/22 17:30 Urine pH 5.5 (5.0-7.0) 12/28/22 17:30 Ur Specific [place] 1.018 (1.005-1.030) 12/28/22 17:30 Glucose (UA)(Auto) Negative (Negative) 12/28/22 17:30 Urine Ketones Negative (Negative) 12/28/22 17:30 Urine Blood Negative (Negative) 12/28/22 17:30 Urine Nitrite Negative (Negative) 12/28/22 17:30 Urine Bilirubin Negative (Negative) 12/28/22 17:30 Urine Urobilinogen 1+ (Normal) H 12/28/22 17:30 Ur Leukocyte Esterase Negative Stacey/uL (Negative) 12/28/22 17:30 Urine RBC <5 /HPF (None Seen) 12/28/22 17:30 Urine WBC <5 /HPF (<5) 12/28/22 17:30 Ur Squamous Epith Cells None seen /HPF (None Seen) 12/28/22 17:30 U Non-Squamous Epi Cells <5 /HPF (None Seen) 12/28/22 17:30 Unidentified Crystals Few /HPF (None Seen) 12/28/22 17:30 Urine Bacteria <20 /HPF (<20) 12/28/22 17:30 Urine Culture Reflexed Not needed 12/28/22 17:30 Urine Total Protein Trace (Negative) H 12/28/22 17:30 Weight: 253 lb Wound Present: Yes Closed Surgical Incision Present: Yes Negative Pressure Wound Therapy Present: No Physician Update: Labs reviewed and are stable. Mildly elevated BLACK BELT of 1.35. He has mild debility. He improved from 9 to 13. His SLUMS improved to 35/30. Walking 150' with CGA, up an down 5 steps. Met all goals with OT, upper and lower body dressing. He will be discharged home in the AM. Summary: Patient's care plan and fiscal agent goals have been reviewed and revised as necessary. Please see the Rehabilitation Signature page for all necessary signatures.
[2023-01-04] MEDS: ENOXAPARIN 40 MG/0.4 ML SQ SCH (17:35)
--- NOTE | 2023-01-04 19:22 | PN ---
Date of Progress Note: 01/04/2023 Subjective: The patient was seen this morning for followup. No new complaints or problems reported by the patient. Lying in bed, not in any distress. Objective: Vital Signs: Reviewed. HEENT: Unremarkable. Lungs: Clear to auscultation. Heart: Sounds normal. Abdomen: Soft. Bowel sounds normal. No guarding, rigidity, tenderness, or distention. Extremities: No leg edema. Impression: 1.Hypertension. 2.Debility. 3.Generalized weakness. 4.Sepsis, resolved. 5.Acute peritonitis, resolved. Plan: We will go ahead and continue current antihypertensive medication. We will continue physical therapy under guidance of Dr. Roldan and he is scheduled to go home tomorrow. I will see him tomor row morning for followup. His antibiotics were discontinued day before yesterday. He has a PICC chung e in place, which we will remove prior to discharge. YESSY/MODL Voice ID: [id number] Report ID: [id number]
[2023-01-04] MEDS: ATORVASTATIN 20 MG TAB PO SCH (19:58)
[2023-01-04 20:18] VITALS: TEMP 97.8
[2023-01-05] MEDS: GUAIFENESIN/DM 5 ML UCUP PO PRN (02:59)
[2023-01-05] MEDS: carvediloL 25 MG TAB PO SCH (05:15)
[2023-01-05] MEDS: PANTOPRAZOLE 40MG TABLET PO SCH (05:16)
[2023-01-05] MEDS: cloNIDine HCL 0.1 MG TAB PO PRN (05:17)
[2023-01-05] MEDS: HYDRALAZINE HCL 10 MG TABLET PO SCH (08:00)
[2023-01-05] MEDS: LOSARTAN POTASSIUM 50 MG TABLET PO SCH (08:00)
[2023-01-05] MEDS: INSULIN -REGULAR HUMAN 50 UNIT/0.5 ML ML SQ SCH (08:00)
[2023-01-05] MEDS: ENSURE HIGH PROTEIN 237 ML CAN PO SCH (09:00)
[2023-01-05] MEDS: DOCUSATE NA 100 MG CAP PO SCH (09:16)
[2023-01-05] MEDS: AMLODIPINE 5 MG TAB PO SCH (09:16)
[2023-01-05] MEDS: LIDOCAINE 4% PATCH TOP SCH (09:16)
[2023-01-05] MEDS: CLOPIDOGREL 75 MG TABLET PO SCH (09:16)
[2023-01-05] MEDS: CARBIDOPA/LEVODOPA 25/100 TAB PO SCH (09:16)
[2023-01-05] MEDS: GABAPENTIN 300 MG CAP PO SCH (09:16)
[2023-01-05] MEDS: DULERA 200/5 (MOMETASONE/FORMOTEROL) INHALER IH SCH (09:17)
[2023-01-05] MEDS: FAMOTIDINE 20 MG TAB PO SCH (09:17)
[2023-01-05] MEDS: FLUTICASONE 50MCG NASAL SPRAY NAS SCH (09:18)
[2023-01-05] MEDS: NYSTATIN PWDR 100000 UNIT/GM TOP SCH (09:18)
[2023-01-05] MEDS: ACETAMINOPHEN 500 MG TAB PO PRN (09:19)
[2023-01-05 09:31] VITALS: BP 108/55
--- NOTE | 2023-01-07 07:26 | DS ---
Date of Discharge: 01/05/2023 Disposition: Discharged to go home. Physical Examination: HEENT: Unremarkable. Lungs: Clear to auscultation. Heart: Sounds normal. Abdomen: Soft. Bowel sounds normal. No guarding, rigidity, tenderness, distention. Extremities: No leg edema. Laboratory Data: Last chemistry on 01/03/2023; sodium 144, potassium 3.7, chloride 113, bicarb 25, B UN 27, creatinine 1.34, estimated GFR 55, glucose 116, albumin 2.5. White count 7.4, hemoglobin 10.3 , platelets 297. Discharge Medications And Instructions: 1.Continue all prior home medications. 2.Check blood pressure 3 times a day and bring readings to the office at the time of followup visit. 3.Follow up at my office next week on . 4.Sinemet that is carbidopa/levodopa 25/100 mg 1 tablet 2 times a day. Hospital Course: This is a 77-year-old very pleasant male patient, was admitted to rehab floor. Ple ase see dictated H and P and discharge summary from medical floor admission for more details. The noel dash originally came into emergency room with abdominal pain, was diagnosed as having acute appendic itis with peritonitis and sepsis, and he had emergency surgery done in form of laparoscopic appendect katherine by Dr. Valencia. The patient received IV Zosyn and altogether he received this antibiotic for 15 days. He had a PICC line in his right arm, which will be removed today prior to discharge. While on the rehab floor, he participated very well with the Physical Therapy and Dr. Roldan manages physic al therapy. Medically, he remained stable. He did have problem with high blood pressure and antihyp ertensive medications were adjusted. We also noted that he had orthostatic hypotension and we will n eed to monitor this on outpatient basis once he gets back point his usual home medication to see whet her this problem continues or not. Dr. Roldan has started him on Sinemet 25/100 mg 1 tablet 2 time s a day for Parkinson disease and we will continue this upon discharge. Overall, his condition has i mproved and he was discharged to go home in stable condition today. Discharge Diagnoses: 1.Sepsis. 2.Peritonitis. 3.Chronic obstructive pulmonary disease. 4.Hypertension. 5.Generalized weakness. 6.Debility. 7.Hypertension. 8.Hyperlipidemia. 9.Type 2 diabetes mellitus with diabetic neuropathy. 10.Osteoarthritis, multiple sites. 11.Chronic kidney disease, stage 3A. 12.Malnutrition, severe. 13.Orthostatic hypotension. 14.Parkinson disease. YESSY/MODL Voice ID: [id number] Report ID: [id number]
== END 2023-01-05 11:45 | disposition home or self-care (01) | DRG 947 ==
LOC: 5TH 11:20
PROVIDERS: ADMIT Internal Medicine; ATTEND Internal Medicine
DX: R53.81 Other malaise (principal); A41.9 Sepsis, unspecified organism; K65.9 Peritonitis, unspecified; E43 Unspecified severe protein-calorie malnutrition; E78.5 Hyperlipidemia, unspecified; J44.9 Chronic obstructive pulmonary disease, unspecified; I12.9 Hypertensive chronic kidney disease with stage 1 through stage 4 chronic kidney disease, or unspecified chronic kidney disease; E11.22 Type 2 diabetes mellitus with diabetic chronic kidney disease; N18.30 Chronic kidney disease, stage 3 unspecified; E11.42 Type 2 diabetes mellitus with diabetic polyneuropathy; D50.9 Iron deficiency anemia, unspecified; K59.00 Constipation, unspecified; R53.1 Weakness; I95.1 Orthostatic hypotension; G20 Parkinson's disease; M15.9 Polyosteoarthritis, unspecified; F17.210 Nicotine dependence, cigarettes, uncomplicated; Z68.34 Body mass index [BMI] 34.0-34.9, adult; Z98.890 Other specified postprocedural states
CPT/HCPCS: 36415; 80048; 81001; 82040; 82947; 83735; 84134; 85025; 87086; 87088; 92523; 94010; 97110; 97116; 97129; 97161; 97165; 97530; 97542; J1650; J1815; J2001; J2543; J7050; Q0162

== ENCOUNTER 2024-08-09 08:47 | Emergency (ER) | payer OTHER ==
[2024-08-09 09:26] LABS: Absolute Basophils 0.1 K/uL (0-0.5); Absolute Eosinophils 0.3 K/uL (0-0.5); Absolute Lymphocytes (CBC) 0.8 K/uL (0.7-4.9); Absolute Monocytes 0.6 K/uL (0.1-1.3); Basophils % 1.1 % (0-1.3); Eosinophils % 4.9 % (0-4.4); Hemoglobin 12.5 g/dL (13.6-17.9); Lymphocytes % 11.7 % (15.3-44.8); MCHC 32.9 g/dL (32.0-36.0); MCV 94.1 fL (80-100); MPV 8.9 fL (7.6-11.3); Monocytes % 9.2 % (3.3-12.3); Neutrophils % 73.1 % (41.7-73.7); Platelets 210 thou/uL (152-406); RBC Red Blood Cell Count 4.04 M/uL (4.33-5.43); Red Cell Distribution Width 13.9 % (12.1-15.2)
[2024-08-09 09:40] LABS: Anion Gap 11.9 mEq/L (5.0-15.0); Potassium 3.9 mEq/L (3.5-5.1)
--- NOTE | 2024-08-09 11:47 | ER ---
Nurse's Notes [facility] Name: Alex Bhatia Age: 79 yrs Sex: Male : 1945 Arrival Date: 08/09/2024 Time: 08:47 Bed 4 Private MD: Lia Lopez C Diagnosis: Poisoning by other drugs, medicaments and biological substances, accidental (unintentional) Presentation: 08/09 08:58 Chief complaint: Patient states: Accidentally took his pills twice today. BP has been ll1 low at home 79/40. Coronavirus screen: Client denies travel out of the [place] in the last 14 days. At this time, the client does not indicate any symptoms associated with coronavirus-19. Ebola Screen: Patient denies travel to an Ebola-affected area in the 21 days before illness onset. Initial Sepsis Screen: Does the patient meet any 2 criteria? No. Patient's initial sepsis screen is negative. Does the patient have a suspected source of infection? No. Patient's initial sepsis screen is negative. Risk Assessment: Do you want to hurt yourself or someone else? Patient reports no desire to harm self or others. Onset of symptoms was August 09, 2024. 08:58 Method Of Arrival: Wheelchair ll1 08:58 Acuity: LATANYA 2 ll1 Triage Assessment: 08:59 General: Appears in no apparent distress. Behavior is calm, cooperative, appropriate ll1 for age. Pain: Denies pain. Neuro: Denies headache. Cardiovascular: Denies chest pain, shortness of breath. Respiratory: Denies shortness of breath. Historical: - Allergies: 08:57 Sulfa (Sulfonamide Antibiotics); ll1 - PMHx: 08:57 COPD; Hypertensive disorder; Prostate Cancer; Stomach Ulcers; ll1 - Immunization history:: Adult Immunizations up to date. - Infectious Disease History:: Denies. - Social history:: Smoking status: Patient reports the use of cigarette tobacco products, smokes one pack cigarettes per day. - Family history:: not pertinent. - Hospitalizations: : No recent hospitalization is reported. Screenin:16 [facility] ED Fall Risk Assessment (Adult) History of falling in the last 3 months, ll1 including since admission No falls in past 3 months (0 pts) Confusion or Disorientation No (0 pts) Intoxicated or Sedated No (0 pts) Impaired Gait Yes (1 pt) Mobility Assist Device Used Yes (1 pt) Altered Elimination No (0 pt) Score/Fall Risk Level 0 - 2 = Low Risk Maintained a safe environment, Hourly rounding (assess needs \T\ fall precautionary measures) done. Abuse screen: Denies threats or abuse. Nutritional screening: No deficits noted. Tuberculosis screening: No symptoms or risk factors identified. Assessment: 09:15 Reassessment: No changes from previously documented assessment. Patient and/or family ll1 updated on plan of care and expected duration. Pain level reassessed. 10:12 Reassessment: No changes from previously documented assessment. Patient and/or family ll1 updated on plan of care and expected duration. Pain level reassessed. Patient is alert, oriented x 3, equal unlabored respirations, skin warm/dry/pink. resting, lights dimmed. 11:00 Reassessment: No changes from previously documented assessment. ll1 12:01 Reassessment: No changes from previously documented assessment. Patient and/or family ll1 updated on plan of care and expected duration. Pain level reassessed. Patient is alert, oriented x 3, equal unlabored respirations, skin warm/dry/pink. Patient states feeling better. Patient states symptoms have improved. Vital Signs: 08:58 BP 106 / 45; Pulse 72; Resp 16; Temp 97.3; Pulse Ox 97% ; Weight 99.34 kg; Height 5 ft. ll1 11 in. ; Pain 0/10; 09:19 BP 104 / 50; Pulse 49; Resp 17; Pulse Ox 95% on R/A; ll1 09:54 BP 109 / 54; rn 09:56 BP 109 / 54; Pulse 48; ll1 10:12 BP 112 / 44; Pulse 50; Resp 16 S; Pulse Ox 98% on R/A; aa5 10:30 BP 137 / 58; rn 11:00 BP 148 / 57; Pulse 54; Resp 17; Pain 0/10; ll1 11:59 BP 160 / 61; Pulse 57; Resp 17; Pulse Ox 100% ; ll1 08:58 Body Mass Index 30.54 (99.34 kg, 180.34 cm) ll1 08:58 Pain Scale: Adult ll1 11:00 Pain Scale: Adult ll1 ED Course: 08:48 Patient arrived in ED. am2 08:49 Lizzie Webster, RN is Primary Nurse. ll1 08:49 Lia Lopez MD is Private Physician. am2 08:49 Cory Iyer MD is Attending Physician. rn 08:49 Patient placed in an exam room, on a stretcher. ll1 08:59 Triage completed. ll1 08:59 Arm band placed on. ll1 09:00 Provided Education on: ER procedures and process. ll1 09:05 Initial lab(s) drawn, by me, sent to lab. Inserted saline lock: 20 gauge in right ll1 antecubital area, using aseptic technique. Blood collected. Flushed with 10 mL NS. 09:15 Patient has correct armband on for positive identification. Bed in low position. Client ll1 placed on continuous cardiac and pulse oximetry monitoring. NIBP monitoring applied. shelter monitor on. Warm blanket given. Pillow given. Verbal reassurance given. 11:58 No provider procedures requiring assistance completed. IV discontinued, intact, ll1 bleeding controlled, No redness/swelling at site. Pressure dressing applied. Administered Medications: 09:14 Drug: NS 0.9% IV 500 ml 500 ml IV at 1 bolus once; to be given as a bolus over 30 ll1 minutes Volume: 500 ml; Route: IV; Rate: 1 bolus; Site: right antecubital; 11:00 Follow up: Response: No adverse reaction; IV Status: Completed infusion; IV Intake: ll1 500ml Medication: 09:16 VIS not applicable for this client. ll1 Intake: 11:00 IV: 500ml; Total: 500ml. ll1 Outcome: 11:46 Discharge ordered by . rn 11:58 Patient left the ED. ll1 11:58 Discharged to home ambulatory, ll1 11:58 Condition: stable 11:58 Discharge instructions given to patient, Instructed on discharge instructions, follow up and referral plans. Demonstrated understanding of instructions, follow-up care, Signatures: Cory Iyer MD MD rn Calderon, Audri, RN RN aa5 Latasha Santos 2 Lizzie Webster, PEGGY RN ll1 Corrections: (The following items were deleted from the chart) 09:01 08:58 BP 106 / 45; Pulse 72bpm; Resp 16bpm; Pulse Ox 97%; 99.34 kg; Height 5 ft. 11 ll1 in.; BMI: 30.5; Pain 0/10, Adult; ll1
--- NOTE | 2024-08-09 11:47 | EDPHYS ---
Physician Documentation [facility] Name: Alex Bhatia Age: 79 yrs Sex: Male : 1945 Arrival Date: 08/09/2024 Time: 08:47 Bed 4 Private MD: Lia Lopez C ED Physician Cory Iyer HPI: 08/09 09:13 This 79 yrs old Male presents to ER via Wheelchair with complaints of Blood Pressure rn Problem. 09:13 The patient presents to the emergency department after a known overdose, that was rn accidental. Context: Method: the patient has a confirmed or suspected ingestion, Time: this morning, the OD/poisoning occurred at at home. Severity of symptoms: At their worst the symptoms were moderate in the emergency department the symptoms have improved. The patient has not experienced similar symptoms in the past. Patient and spouse report he accidentally took an extra one of his blood pressure medication this morning. Usually takes it twice daily, took both this morning about an hour apart. Medication was lisinopril/HCTZ. Patient states feels fine. Spouse reports blood pressure at home was in the 70s. Patient denies any shortness of breath or chest pain. No abdominal or back pain. No focal neurological deficit.. Historical: - Allergies: 08:57 Sulfa (Sulfonamide Antibiotics); ll1 - PMHx: 08:57 COPD; Hypertensive disorder; Prostate Cancer; Stomach Ulcers; ll1 - Immunization history:: Adult Immunizations up to date. - Infectious Disease History:: Denies. - Social history:: Smoking status: Patient reports the use of cigarette tobacco products, smokes one pack cigarettes per day. - Family history:: not pertinent. - Hospitalizations: : No recent hospitalization is reported. ROS: 09:13 Constitutional: Negative for fever, chills, and weight loss, Neck: Negative for injury, rn pain, and swelling, Cardiovascular: Negative for chest pain, palpitations, and edema, Respiratory: Negative for shortness of breath, cough, wheezing, and pleuritic chest pain, Abdomen/GI: Negative for abdominal pain, nausea, vomiting, diarrhea, and constipation, Back: Negative for injury and pain, MS/Extremity: Negative for injury and deformity, Skin: Negative for injury, rash, and discoloration, Neuro: Negative for headache, weakness, numbness, tingling, and seizure, Exam: 09:13 Constitutional: This is a well developed, well nourished patient who is awake, alert, rn and in no acute distress. Head/Face: Normocephalic, atraumatic. Cardiovascular: Bradycardic, regular Respiratory: No increased work of breathing, no retractions or nasal flaring. Abdomen/GI: Soft, non-tender, no masses MS/ Extremity: Pulses equal, no cyanosis. Neurovascular intact. Full, normal range of motion. Equal circumference. Neuro: Awake and alert, GCS 15, oriented to person, place, time, and situation. Cranial nerves II-XII grossly intact. Motor strength 4/5 in all extremities. Sensory grossly intact. 09:16 ECG was reviewed by the Attending Physician. rn Vital Signs: 08:58 BP 106 / 45; Pulse 72; Resp 16; Temp 97.3; Pulse Ox 97% ; Weight 99.34 kg; Height 5 ft. ll1 11 in. ; Pain 0/10; 09:19 BP 104 / 50; Pulse 49; Resp 17; Pulse Ox 95% on R/A; ll1 09:54 BP 109 / 54; rn 09:56 BP 109 / 54; Pulse 48; ll1 10:12 BP 112 / 44; Pulse 50; Resp 16 S; Pulse Ox 98% on R/A; aa5 10:30 BP 137 / 58; rn 11:00 BP 148 / 57; Pulse 54; Resp 17; Pain 0/10; ll1 11:59 BP 160 / 61; Pulse 57; Resp 17; Pulse Ox 100% ; ll1 08:58 Body Mass Index 30.54 (99.34 kg, 180.34 cm) ll1 08:58 Pain Scale: Adult ll1 11:00 Pain Scale: Adult ll1 MDM: 08:49 Medical Screening Exam initiated rn 11:45 Differential diagnosis: Ingestion/exposure to lisinopril/HCTZ. Data reviewed: vital rn signs, nurses notes, lab test result(s), EKG, and as a result, I will discharge patient. Counseling: I had a detailed discussion with the patient and/or guardian regarding the historical points, exam findings, and any diagnostic results supporting the discharge/admit diagnosis, lab results, the need for outpatient follow up, to return to the emergency department if symptoms worsen or persist or if there are any questions or concerns that arise at home. ED course: No hypotensive episodes here. Patient still at baseline. Actually on the hypertensive side here now. Observed for 3 hours without problem. Patient wants to go home. Will discharge home with return precautions.. 08/09 09:01 Order name: Basic Metabolic Panel; Complete Time: 09:42 rn 08/09 09:01 Order name: CBC with Diff; Complete Time: : rn 08/09 09:01 Order name: NT PRO-BNP; Complete Time: : rn 08/09 09:01 Order name: Cardiac monitoring; Complete Time: : rn 08/09 09:01 Order name: EKG - Nurse/Tech; Complete Time: : rn 08/09 09:01 Order name: IV Saline Lock; Complete Time: : rn 08/09 09:01 Order name: Labs collected and sent; Complete Time: : rn 08/09 09:01 Order name: O2 Per Protocol; Complete Time: : rn 08/09 09:01 Order name: O2 Sat Monitoring; Complete Time: : rn EC:16 Rate is 49 beats/min. Rhythm is regular. QRS [place] is Normal. [place] interval is normal. QRS rn interval is normal. QT interval is normal. No Q waves. T waves are Normal. No ST changes noted. Clinical impression: Sinus bradycardia. Interpreted by me. Reviewed by me. Administered Medications: 09:14 Drug: NS 0.9% IV 500 ml 500 ml IV at 1 bolus once; to be given as a bolus over 30 ll1 minutes Volume: 500 ml; Route: IV; Rate: 1 bolus; Site: right antecubital; 11:00 Follow up: Response: No adverse reaction; IV Status: Completed infusion; IV Intake: ll1 500ml Disposition Summary: 08/09/24 11:46 Discharge Ordered Notes: Location: Home rn Problem: new rn Symptoms: have improved rn Condition: Stable rn Diagnosis - Poisoning by other drugs, medicaments and biological substances, accidental rn (unintentional) Followup: rn - With: Private Physician - When: As needed - Reason: Recheck today's complaints, Re-evaluation by your physician Discharge Instructions: - Discharge Summary Sheet rn - Form - Blood Pressure Record Sheet rn - How to Take Your Blood Pressure rn Forms: - Medication Reconciliation Form rn - Antibiotic roller turner - Prescription Opioid Use rn - Patient Portal Instructions rn - Leadership Thank You Letter rn Signatures: Dispatcher [employer] Cory Gordillo MD MD rn Lewis, Lynsay, RN RN ll1
[2024-08-11 16:02] VITALS: BP 137/58; TEMP 97.3; O2SAT 98
--- NOTE | 2024-08-13 12:12 | EKG ---
Test Date: 2024-08-09 Test Time: 09:09:00 Alternative Energy Engineer: MIRIAM MEASUREMENT RESULTS: Intervals: Rate: 49 VT: 148 QRSD: 104 QT: 528 QTc: 476 Jelm: P: 57 VT: 148 QRS: 46 T: 78 INTERPRETIVE STATEMENTS: Sinus bradycardia Otherwise normal ECG Compared to ECG 04/09/2024 12:05:24 ST (T wave) deviation no longer present Electronically Signed On 08-13-24 12:08:53 [employer] by Kenton Salcedo
== END 2024-08-09 11:58 | disposition home or self-care (01) ==
LOC: ER 08:47
DX: T50.991A Poisoning by other drugs, medicaments and biological substances, accidental (unintentional), initial encounter (principal); I10 Essential (primary) hypertension; J44.9 Chronic obstructive pulmonary disease, unspecified; F17.210 Nicotine dependence, cigarettes, uncomplicated; Z88.2 Allergy status to sulfonamides
CPT/HCPCS: 36415; 80048; 83880; 85025; 93005; 96360; 96361; 99285